=== PATIENT | male | born 1950 | race Caucasian/White ===

== ENCOUNTER 2019-09-22 14:17 | Emergency (ER) | payer MEDICARE ==
[2019-09-22] MEDS ORDERED: Lidocaine 2% Jelly 30 ML Tube MUCMEM ONE (14:21)
[2019-09-22] MEDS ORDERED: Lidocaine 2% HCl 6 ML JEL.PF.APP MM ONE (14:30)
--- NOTE | 2019-09-22 14:56 | EDM.PDOC ---
ED HPI GENERAL MEDICAL PROBLEM - General Chief Complaint: Genitourinary Problem Stated Complaint: CATETHER REPLACE Time Seen by Provider: 09/22/19 14:25 Source of Information: Reports: Patient History Limitations: Reports: No Limitations - History of Present Illness INITIAL COMMENTS - FREE TEXT/NARRATIVE: Patient presented to the ED because of replacement of vivar catheter. His catheter apparently was licking on the side and urine flow was obstructed. He denies any dysuria,fever,chills or flank pain. - Related Data Allergies Allergy/AdvReac Type Severity Reaction Status Date / Time No Known Allergies Allergy Verified 09/22/19 14:20 Home Meds: Home Meds Sulfamethoxazole/Trimethoprim [Bactrim Ds Tablet] 1 each PO BID #14 tablet 09/22 [Rx] Past Medical History Cardiovascular History: Reports: Hypertension, PVD Genitourinary History: Reports: Prostate Disorder, Renal Disease Musculoskeletal History: Reports: RA Endocrine/Metabolic History: Reports: Diabetes, Type II - Infectious Disease History Infectious Disease History: Reports: Chicken Pox, Measles, Mumps - Past Surgical History Head Surgeries/Procedures: Reports: None Musculoskeletal Surgical History: Reports: Arthroscopic Knee Other Musculoskeletal Surgeries/Procedures:: R knee scope Social & Family History - Family History Family Medical History: Noncontributory - Tobacco Use Smoking Status *Q: Never Smoker - Caffeine Use Caffeine Use: Reports: None - Recreational Drug Use Recreational Drug Use: No ED ROS GENERAL - Review of Systems Review Of Systems: See Below Constitutional: Reports: No Symptoms HEENT: Reports: No Symptoms Respiratory: Reports: No Symptoms Cardiovascular: Reports: No Symptoms Endocrine: Reports: No Symptoms GI/Abdominal: Reports: No Symptoms : Reports: Other (stinky urine) Musculoskeletal: Reports: No Symptoms Skin: Reports: No Symptoms Neurological: Reports: No Symptoms Psychiatric: Reports: No Symptoms ED EXAM, RENAL/ - Physical Exam Exam: See Below Exam Limited By: No Limitations General Appearance: Alert, No Apparent Distress Ears: Normal External Exam, Normal Canal, Hearing Grossly Normal, Normal TMs Nose: Normal Inspection, Normal Mucosa, No Blood Throat/Mouth: Normal Inspection, Normal Lips, Normal Teeth, Normal Gums, Normal Oropharynx, Normal Voice Head: Atraumatic, Normocephalic Neck: Normal Inspection, Supple, Non-Tender, Full Range of Motion Respiratory/Chest: No Respiratory Distress, Lungs Clear, Normal Breath Sounds, No Accessory Muscle Use, Chest Non-Tender Cardiovascular: Normal Peripheral Pulses, Regular Rate, Rhythm, No Edema, No Gallop, No JVD, No Murmur, No Rub GI/Abdominal: Normal Bowel Sounds, Soft, Non-Tender, No Organomegaly, No Distention, No Abnormal Bruit (Male) Exam: Other (catheter in place with turbid urine color that is malodorous) Back Exam: Normal Inspection, Full Range of Motion Extremities: Normal Inspection, Normal Range of Motion Course - Vital Signs Text/Narrative:: replacement of vivar UA-see result start on Bactrim DS, 1 tab po BID x 7 days pending UC result. Last Recorded V/S: Last Vital Signs Temp 36.6 C 09/22/19 14:17 Pulse 83 09/22/19 14:17 Resp 18 09/22/19 14:17 BP 122/73 09/22/19 14:17 Pulse Ox 99 09/22/19 14:17 - Orders/Labs/Meds Orders: Active Orders 24 hr Category Date Time Status CULTURE URINE [RM] Stat Lab 09/22/19 15:57 Ordered Labs: Laboratory Tests 09/22/19 Range/Units 15:20 Urine Color Brown (YELLOW) Urine Appearance Cloudy (CLEAR) Urine pH 5.0 (5.0-6.5) Ur Specific [place] 1.020 (1.010-1.025) Urine Protein 500 H (NEGATIVE) mg/dL Urine Glucose (UA) Normal (NORMAL) mg/dL Urine Ketones Negative (NEGATIVE) mg/dL Urine Occult Blood Large H (NEGATIVE) Urine Nitrite Positive H (NEGATIVE) Urine Bilirubin Negative (NEGATIVE) Urine Urobilinogen Normal (NEGATIVE) mg/dL Ur Leukocyte Esterase Large H (NEGATIVE) Urine RBC Packed H (0-5) Urine WBC Packed H (0-5) Urine Bacteria Many H (NS) Meds: Medications Discontinued Medications Generic Name Dose Route Start Last Admin Trade Name Freq PRN Reason Stop Dose Admin Lidocaine HCl 6 ml 09/22/19 14:21 Xylocaine 2% Jelly MUCMEM 09/22/19 14:22 ONETIME ONE Departure - Departure Time of Disposition: 15:15 Disposition: Home, Self-Care 01 Condition: Good Clinical Impression: Indwelling catheter replaced - Discharge Information Prescriptions: Sulfamethoxazole/Trimethoprim [Bactrim Ds Tablet] 1 each PO BID #14 tablet Instructions: Indwelling Urinary Catheter Insertion, Care After Referrals: Abdias Rivera MD [Primary Care Provider] - Forms: ED Department Discharge Additional Instructions: please read discharge instructions on catheter replacement increase oral fluids follow up as needed Sepsis Event Note - Evaluation Sepsis Screening Result: No Definite Risk - Focused Exam Vital Signs: Vital Signs Temp Pulse Resp BP Pulse Ox 09/22/19 14:17 36.6 C 83 18 122/73 99 Date Exam was Performed: 09/22/19 Time Exam was Performed: 16:17 - My Orders Last 24 Hours: My Active Orders 09/22/19 15:57 CULTURE URINE [RM] Stat - Assessment/Plan Last 24 Hours: My Active Orders 09/22/19 15:57 CULTURE URINE [RM] Stat
== END 2019-09-22 15:34 | disposition home or self-care (01) ==
LOC: FB.ED 14:17
DX: Z46.6 Encounter for fitting and adjustment of urinary device (principal); E11.9 Type 2 diabetes mellitus without complications; I10 Essential (primary) hypertension; Z79.899 Other long term (current) drug therapy
CPT/HCPCS: 51702; 81001; 87086; 87088; 87186; 99282; 99283-25; A9270-GY

== ENCOUNTER 2020-01-01 13:56 | Inpatient (IN) | payer MEDICARE, OTHER ==
[2020-01-01] MEDS ORDERED: cefTRIAXone 1 GM in Sodium Chloride 0.9% 50 ML IV ONE (15:34)
[2020-01-01] MEDS ORDERED: Lidocaine 2% HCl 6 ML JEL.PF.APP ONE ×2 (15:35→15:36)
[2020-01-01] MEDS ORDERED: Sodium Chloride 0.9% 1,000 ML IV SCH (15:45)
--- NOTE | 2020-01-01 16:31 | EDM.PDOC ---
ED HPI GENERAL MEDICAL PROBLEM - General Chief Complaint: Fever Stated Complaint: CONFUSION,POSS UTI,FEVER Time Seen by Provider: 01/01/20 14:45 Source of Information: Reports: Patient History Limitations: Reports: Altered Mental Status - History of Present Illness INITIAL COMMENTS - FREE TEXT/NARRATIVE: c/o fever pt has indwelling vivar, it was changed at [facility] today but there there was little urine output, he was noted to have a fever and sent to the ED on arrival at the ED the vivar was found to be coiled in the urethra, the balloon was partially deflated but could not be extracted by RN, with gentle traction the catheter came out with ~2 ml of saline still in one side of the balloon (not cleared why it had drained completely as the plunger on the syringe was pulled back), there was a gush of urine that was brown with old blood, no fresh blood there was 263 ml urine on bladder scan prior to placing of new catheter and approximately this amount was drained with new catheter - Related Data Allergies Allergy/AdvReac Type Severity Reaction Status Date / Time No Known Allergies Allergy Verified 01/01/20 14:22 Home Meds: Home Meds Aspirin 81 mg PO DAILY 01/01/20 [History] Finasteride 5 mg PO DAILY 01/01/20 [History] Insulin Glarg,Human.Rec.Analog [Lantus Solostar] 34 units SUBCUT DAILY 01/01/20 [History] Losartan Potassium 100 mg PO DAILY 01/01/20 [History] Magnesium Chloride [Mag Delay] 64 mg PO BEDTIME 01/01/20 [History] Tamsulosin HCl 0.4 mg PO DAILY 01/01/20 [History] Thiamine [Vitamin B-1] 100 mg PO DAILY 01/01/20 [History] Vit B Cmplx 3/Fa/Vit C/Biotin [Teodora-Daniel Rx Tablet] 1 tab PO DAILY 01/01/20 [ History] carvediloL [Carvedilol] 6.25 mg PO BID 01/01/20 [History] metFORMIN HCl [Metformin HCl] 500 mg PO BID 01/01/20 [History] Past Medical History Cardiovascular History: Reports: Hypertension, PVD Genitourinary History: Reports: Prostate Disorder, Renal Disease Musculoskeletal History: Reports: RA Endocrine/Metabolic History: Reports: Diabetes, Type II - Infectious Disease History Infectious Disease History: Reports: Chicken Pox, Measles, Mumps - Past Surgical History Head Surgeries/Procedures: Reports: None Musculoskeletal Surgical History: Reports: Arthroscopic Knee Other Musculoskeletal Surgeries/Procedures:: R knee scope Social & Family History - Family History Family Medical History: Noncontributory - Caffeine Use Caffeine Use: Reports: None ED ROS GENERAL - Review of Systems Review Of Systems: See Below Constitutional: Reports: Fever HEENT: Reports: No Symptoms Respiratory: Reports: No Symptoms Cardiovascular: Reports: No Symptoms Endocrine: Reports: No Symptoms GI/Abdominal: Reports: No Symptoms : Reports: Other (pelvic/bladder pain, uretheral pain) Musculoskeletal: Reports: No Symptoms Skin: Reports: No Symptoms Neurological: Reports: No Symptoms Psychiatric: Reports: No Symptoms Hematologic/Lymphatic: Reports: No Symptoms Immunologic: Reports: No Symptoms ED EXAM, GENERAL - Physical Exam Exam: See Below Exam Limited By: No Limitations General Appearance: Alert, Anxious, Mild Distress, Other (pacing in room, much more relaxed and calm after vivar changed, nontoxic) Head: Atraumatic, Normocephalic Neck: Normal Inspection, Supple, Non-Tender Respiratory/Chest: Lungs Clear, Normal Breath Sounds, Crackles Cardiovascular: Regular Rate, Rhythm, No Edema, Other (2/6 ISAAC at LSB) GI/Abdominal: Soft, Non-Tender, No Distention (Male) Exam: Other (circumscised male, normal anatomy) Back Exam: Normal Inspection, Full Range of Motion. No: CVA Tenderness (R), CVA Tenderness (L) Extremities: Normal Inspection, Normal Range of Motion, Non-Tender, No Pedal Edema Neurological: Alert, Oriented, CN II-XII Intact, No Motor/Sensory Deficits, Slow to Respond Psychiatric: Anxious Skin Exam: Warm, Dry, Intact, Normal Color, No Rash Lymphatic: No Adenopathy Course - Vital Signs Last Recorded V/S: Last Vital Signs Temp 38.5 C H 01/01/20 15:10 Pulse 121 H 01/01/20 15:10 Resp 18 01/01/20 15:10 BP 167/72 H 01/01/20 15:10 Pulse Ox 95 01/01/20 15:10 - Orders/Labs/Meds Orders: Active Orders 24 hr Category Date Time Status EKG Documentation Completion [RC] ASDIRECTED Care 01/01/20 14:09 Active Chest 1V Frontal [CR] Stat Exams 01/01/20 14:04 Taken CULTURE BLOOD [BC] Urgent Lab 01/01/20 14:30 Received CULTURE BLOOD [BC] Urgent Lab 01/01/20 14:40 Received CULTURE URINE [RM] Stat Lab 01/01/20 16:22 Ordered Sodium Chloride 0.9% [Normal Saline] 1,000 ml Med 01/01/20 15:45 Active IV ASDIRECTED Blood Culture x2 Reflex Set [OM.PC] Urgent Oth 01/01/20 14:04 Ordered EKG 12 Lead [EK] Routine Ther 01/01/20 14:08 Ordered Medication Orders Sodium Chloride (Normal Saline) 1,000 mls @ 0 mls/hr IV ASDIRECTED MIKE Stop: 01/05/20 15:34 Last Admin: 01/01/20 16:17 Dose: 30 mls/hr Labs: Laboratory Tests 01/01/20 01/01/20 01/01/20 Range/Units 14:30 14:30 14:30 WBC 21.2 H (4.5-12.0) X10-3/uL RBC 4.99 (4.30-5.75) x10(6)uL Hgb 16.1 (13.5-17.8) g/dL Hct 47.1 (30.0-51.3) % MCV 94.3 (80-96) fL MCH 32.2 (27.7-33.6) pg MCHC 34.2 (32.2-35.4) g/dL RDW 12.7 (11.5-15.5) % Plt Count 141 (125-369) X10(3)uL MPV 8.4 (7.4-10.4) fL Add Manual Diff Yes Neutrophils % (Manual) 83 H (46-82) % Band Neutrophils % 6 (0-6) % Lymphocytes % (Manual) 1 L (13-37) % Monocytes % (Manual) 10 (4-12) % Sodium 137 (135-145) mmol/L Potassium 4.0 (3.5-5.3) mmol/L Chloride 100 (100-110) mmol/L Carbon Dioxide 14 L (21-32) mmol/L BUN 26 H D (7-18) mg/dL Creatinine 2.6 H* (0.70-1.30) mg/dL Est Cr Clr Drug Dosing TNP Estimated GFR (MDRD) 24 L (>60) BUN/Creatinine Ratio 10.0 (9-20) Glucose 404 H* D (80-116) mg/dL Lactic Acid 8.3 H* (0.4-2.0) mmol/L Calcium 9.4 (8.6-10.2) mg/dL Total Bilirubin 1.8 H (0.1-1.3) mg/dL AST 51 H D (5-25) IU/L ALT 94 H D (12-36) U/L Alkaline Phosphatase 83 (56-112) IU/L Troponin I (4.0-60.3) pg/mL Total Protein 8.3 H (6.0-8.0) g/dL Albumin 3.4 (3.2-4.6) g/dL Globulin 4.9 g/dL Albumin/Globulin Ratio 0.7 Urine Color (YELLOW) Urine Appearance (CLEAR) Urine pH (5.0-6.5) Ur Specific [place] (1.010-1.025) Urine Protein (NEGATIVE) mg/dL Urine Glucose (UA) (NORMAL) mg/dL Urine Ketones (NEGATIVE) mg/dL Urine Occult Blood (NEGATIVE) Urine Nitrite (NEGATIVE) Urine Bilirubin (NEGATIVE) Urine Urobilinogen (NEGATIVE) mg/dL Ur Leukocyte Esterase (NEGATIVE) Urine RBC (0-5) Urine WBC (0-5) 01/01/20 01/01/20 Range/Units 14:30 15:52 WBC (4.5-12.0) X10-3/uL RBC (4.30-5.75) x10(6)uL Hgb (13.5-17.8) g/dL Hct (30.0-51.3) % MCV (80-96) fL MCH (27.7-33.6) pg MCHC (32.2-35.4) g/dL RDW (11.5-15.5) % Plt Count (125-369) X10(3)uL MPV (7.4-10.4) fL Add Manual Diff Neutrophils % (Manual) (46-82) % Band Neutrophils % (0-6) % Lymphocytes % (Manual) (13-37) % Monocytes % (Manual) (4-12) % Sodium (135-145) mmol/L Potassium (3.5-5.3) mmol/L Chloride (100-110) mmol/L Carbon Dioxide (21-32) mmol/L BUN (7-18) mg/dL Creatinine (0.70-1.30) mg/dL Est Cr Clr Drug Dosing Estimated GFR (MDRD) (>60) BUN/Creatinine Ratio (9-20) Glucose (80-116) mg/dL Lactic Acid (0.4-2.0) mmol/L Calcium (8.6-10.2) mg/dL Total Bilirubin (0.1-1.3) mg/dL AST (5-25) IU/L ALT (12-36) U/L Alkaline Phosphatase (56-112) IU/L Troponin I 272.0 H* (4.0-60.3) pg/mL Total Protein (6.0-8.0) g/dL Albumin (3.2-4.6) g/dL Globulin g/dL Albumin/Globulin Ratio Urine Color Red (YELLOW) Urine Appearance Cloudy (CLEAR) Urine pH 6.5 (5.0-6.5) Ur Specific [place] 1.020 (1.010-1.025) Urine Protein 100 H (NEGATIVE) mg/dL Urine Glucose (UA) 50 H (NORMAL) mg/dL Urine Ketones 15 H (NEGATIVE) mg/dL Urine Occult Blood Large H (NEGATIVE) Urine Nitrite Negative (NEGATIVE) Urine Bilirubin Negative (NEGATIVE) Urine Urobilinogen 1 H (NEGATIVE) mg/dL Ur Leukocyte Esterase Large H (NEGATIVE) Urine RBC Packed H (0-5) Urine WBC Packed H (0-5) Meds: Medications Generic Name Dose Route Start Last Admin Trade Name Freq PRN Reason Stop Dose Admin Sodium Chloride 1,000 mls @ 0 mls/hr 01/01/20 15:45 01/01/20 16:17 Normal Saline IV 01/05/20 15:34 30 mls/hr ASDIRECTED MIKE Administration KVO Discontinued Medications Generic Name Dose Route Start Last Admin Trade Name Freq PRN Reason Stop Dose Admin Ceftriaxone Sodium 1 gm/ 50 mls @ 200 mls/hr 01/01/20 15:34 01/01/20 16:01 Sodium Chloride IV 01/01/20 15:48 200 mls/hr ONETIME ONE Administration Lidocaine HCl Confirm 05/01/20 15:35 Glydo Administered 01/01/20 15:36 Dose 6 ml .ROUTE .STK-MED ONE Lidocaine HCl 0 ml 01/01/20 15:36 Glydo .XX 01/01/20 15:37 NOW ONE - Re-Assessments/Exams Free Text/Narrative Re-Assessment/Exam: 01/01/20 16:37 last UC 09-22-19 with E coli sensitive to all inc'd trop of uncertain clinical sig, no cp, no sob, CxR 1v is neg on prelim ED reading. EKG with ST 118 with old IWMI. Will check serial trops. [facility] reports that pt does not leave vivar alone, he has detached it in the past, it has been found coiled "in his butt". Pt goes to [place] monthly to change vivar. Wearing depends. 01/01/20 16:45 order for initial one liter NS incorrectly came across as KVO, changed to NS x 2 liters, each at 999 ml/hr, will recheck lactic after 2nd liter moderate dementia, apparently wants to be a full code Departure - Departure Time of Disposition: 16:35 Disposition: Admitted As Inpatient 64 Condition: Good Clinical Impression: Sepsis, Urinary tract infection associated with catheterization of urinary tract, Tachycardia, Leukocytosis, Left shift, Elevated troponin, Acute on chronic renal insufficiency, Urinary obstruction, Dementia - Discharge Information *PRESCRIPTION DRUG MONITORING PROGRAM REVIEWED*: Yes *COPY OF PRESCRIPTION DRUG MONITORING REPORT IN PATIENT KIRAN: Not Applicable Referrals: Abdias Rivera MD [Primary Care Provider] - Sepsis Event Note - Evaluation Sepsis Screening Result: Possible Sepsis Risk - Focused Exam Vital Signs: Vital Signs Temp Pulse Resp BP Pulse Ox 01/01/20 15:10 38.5 C H 121 H 18 167/72 H 95 01/01/20 13:56 123 H 24 H 188/102 H 90 L Date Exam was Performed: 01/01/20 Time Exam was Performed: 16:25 - My Orders Last 24 Hours: My Active Orders 01/01/20 14:04 Chest 1V Frontal [CR] Stat Blood Culture x2 Reflex Set [OM.PC] Urgent 01/01/20 14:08 EKG 12 Lead [EK] Routine 01/01/20 14:09 EKG Documentation Completion [RC] ASDIRECTED 01/01/20 14:30 CULTURE BLOOD [BC] Urgent 01/01/20 14:40 CULTURE BLOOD [BC] Urgent 01/01/20 15:45 Sodium Chloride 0.9% [Normal Saline] 1,000 ml IV ASDIRECTED 01/01/20 16:22 CULTURE URINE [RM] Stat - Assessment/Plan Last 24 Hours: My Active Orders 01/01/20 14:04 Chest 1V Frontal [CR] Stat Blood Culture x2 Reflex Set [OM.PC] Urgent 01/01/20 14:08 EKG 12 Lead [EK] Routine 01/01/20 14:09 EKG Documentation Completion [RC] ASDIRECTED 01/01/20 14:30 CULTURE BLOOD [BC] Urgent 01/01/20 14:40 CULTURE BLOOD [BC] Urgent 01/01/20 15:45 Sodium Chloride 0.9% [Normal Saline] 1,000 ml IV ASDIRECTED 01/01/20 16:22 CULTURE URINE [RM] Stat
[2020-01-01] MEDS ORDERED: Sodium Chloride 0.9% 1,000 ML IV ONE ×2 (16:43→16:44)
--- NOTE | 2020-01-01 17:06 | CR ---
INDICATION: Fever. CHEST, ONE VIEW: An AP portable upright view of the chest 01/01/20 was obtained - no comparisons. The heart appears to be near the upper limits of normal in size but is emphasized by poor inspiration and AP positioning. The aorta is calcified minimally in the arch area and mildly tortuous. A consolidating pneumonia or effusion was not identified. IMPRESSION: No acute process. MTDD
[2020-01-01] MEDS ORDERED: Ondansetron 4 MG/2 ML SDV IV PRN (17:56)
[2020-01-01] MEDS ORDERED: Acetaminophen 325 MG Tab PO PRN (17:56)
[2020-01-01] MEDS ORDERED: Dextrose 5%-0.45% NaCl 1,000 ML IV SCH (18:00)
[2020-01-01] MEDS: Sodium Chloride 0.45% 1,000 ML IV SCH (18:54)
[2020-01-01] MEDS: Carvedilol 6.25 MG Tab PO SCH (19:01)
[2020-01-01] MEDS: metFORMIN 500 MG Tab PO SCH (19:01)
[2020-01-01] MEDS: Enoxaparin 30 MG/0.3 ML Syringe SUBCUT SCH (19:02)
[2020-01-01] MEDS: Magnesium Chloride 64 MG Tab.ER PO SCH (20:10)
[2020-01-02] MEDS: Sodium Chloride 0.45% 1,000 ML IV SCH (08:11)
[2020-01-02] MEDS: metFORMIN 500 MG Tab PO SCH ×2 (08:29→17:13)
[2020-01-02] MEDS: Carvedilol 6.25 MG Tab PO SCH ×2 (08:29→17:12)
[2020-01-02] MEDS: Tamsulosin 0.4 MG Cap.ER PO SCH (08:29)
[2020-01-02] MEDS: Thiamine 100 MG Tab PO SCH (08:29)
[2020-01-02] MEDS: Aspirin 81 MG Tab.Chew PO SCH (08:29)
[2020-01-02] MEDS: Insulin Lispro 100 Unit/ML 3 ML KwikPen SUBCUT SCH ×3 (08:31→17:45)
[2020-01-02] MEDS: Insulin Glargine,Human Rec. Analog 100 Units/ML 3 ML Pen SUBCUT SCH (08:33)
[2020-01-02] MEDS: Finasteride 5 MG Tab PO SCH (08:40)
--- NOTE | 2020-01-02 08:40 | PCM.HP.2 ---
H&P History of Present Illness - General Date of Service: 01/02/20 Admit Problem/Dx: Admission Diagnosis/Problem Admission Diagnosis/Problem Sepsis Source of Information: Patient, Old Records History Limitations: Reports: Altered Mental Status - History of Present Illness Initial Comments - Free Text/Narative: Scott is a 69-year-old male from [facility]. He came yesterday with acute confusion, and fever. Was found to have urinary retention, and a presumptive diagnosis of sepsis was made based on his urinalysis, lactate and presence of fever. He did not endorse any respiratory symptoms. Is known to have BPH, dementia, peripheral vascular disease, hypertension type 2 diabetes previously stable. The symptoms were fairly acute in onset. - Related Data Allergies/Adverse Reactions: Allergies Allergy/AdvReac Type Severity Reaction Status Date / Time No Known Allergies Allergy Verified 01/01/20 14:22 Home Medications: Home Meds Aspirin 81 mg PO DAILY 01/01/20 [History] Finasteride 5 mg PO DAILY 01/01/20 [History] Insulin Glarg,Human.Rec.Analog [Lantus Solostar] 34 units SUBCUT DAILY 01/01/20 [History] Losartan Potassium 100 mg PO DAILY 01/01/20 [History] Magnesium Chloride [Mag Delay] 64 mg PO BEDTIME 01/01/20 [History] Tamsulosin HCl 0.4 mg PO DAILY 01/01/20 [History] Thiamine [Vitamin B-1] 100 mg PO DAILY 01/01/20 [History] Vit B Cmplx 3/Fa/Vit C/Biotin [Teodora-[facility] Rx Tablet] 1 tab PO DAILY 01/01/20 [ History] carvediloL [Carvedilol] 6.25 mg PO BID 01/01/20 [History] metFORMIN HCl [Metformin HCl] 500 mg PO BID 01/01/20 [History] Past Medical History HEENT History: Reports: Hard of Hearing Cardiovascular History: Reports: Hypertension, PVD Genitourinary History: Reports: Prostate Disorder, Renal Disease Musculoskeletal History: Reports: RA Psychiatric History: Reports: Dementia Endocrine/Metabolic History: Reports: Diabetes, Type II - Infectious Disease History Infectious Disease History: Reports: Chicken Pox, Measles, Mumps - Past Surgical History Head Surgeries/Procedures: Reports: None Musculoskeletal Surgical History: Reports: Arthroscopic Knee Other Musculoskeletal Surgeries/Procedures:: R knee scope Social & Family History - Family History Family Medical History: Noncontributory - Tobacco Use Smoking Status *Q: Never Smoker - Caffeine Use Caffeine Use: Reports: None - Recreational Drug Use Recreational Drug Use: No H&P Review of Systems - Review of Systems: Review Of Systems: Comprehensive ROS is negative, except as noted in HPI. Exam - Exam Exam: See Below - Vital Signs Vital Signs: Last Vital Signs Temp 98.6 F 01/02/20 03:37 Pulse 96 01/02/20 08:29 Resp 18 01/02/20 03:37 BP 127/66 01/02/20 08:29 Pulse Ox 95 01/02/20 03:37 Weight: 79.742 kg - Exam General: Alert, Oriented, 4 HEENT: PERRLA, Hearing Intact, Mucosa Moist & [place], Nares Patent, Normal Nasal Septum, Posterior Pharynx Clear, Conjunctiva Clear, EOMI, EACs Clear, TMs Clear Neck: Supple, Trachea Midline, 2 Lungs: Clear to Auscultation, Normal Respiratory Effort Cardiovascular: Regular Rate, Regular Rhythm GI/Abdominal Exam: Normal Bowel Sounds, Soft, Non-Tender, No Organomegaly, No Distention, No Abnormal Bruit, No Mass, Pelvis Stable (Male) Exam: Deferred Rectal (Males) Exam: Deferred Back Exam: Normal Inspection, Full Range of Motion, NT Extremities: Normal Inspection, Normal Range of Motion, Non-Tender, No Pedal Edema, Normal Capillary Refill Skin: Warm, Dry, Intact Neurological: Cranial Nerves Intact, Reflexes Equal Bilateral Neuro Extensive - Mental Status: Alert, Oriented x3, Normal Mood/Affect, Normal Cognition Neuro Extensive - Motor, Sensory, Reflexes: CN II-XII Intact, Normal Gait, Normal Reflexes Psychiatric: Alert, Normal Affect, Normal Mood - Patient Data Lab Results Last 24 hrs: Laboratory Results - last 24 hr 01/01/20 01/01/20 01/01/20 Range/Units 14:30 14:30 14:30 WBC 21.2 H (4.5-12.0) X10-3/uL RBC 4.99 (4.30-5.75) x10(6)uL Hgb 16.1 (13.5-17.8) g/dL Hct 47.1 (30.0-51.3) % MCV 94.3 (80-96) fL MCH 32.2 (27.7-33.6) pg MCHC 34.2 (32.2-35.4) g/dL RDW 12.7 (11.5-15.5) % Plt Count 141 (125-369) X10(3)uL MPV 8.4 (7.4-10.4) fL Add Manual Diff Yes Neutrophils % (Manual) 83 H (46-82) % Band Neutrophils % 6 (0-6) % Lymphocytes % (Manual) 1 L (13-37) % Monocytes % (Manual) 10 (4-12) % Sodium 137 (135-145) mmol/L Potassium 4.0 (3.5-5.3) mmol/L Chloride 100 (100-110) mmol/L Carbon Dioxide 14 L (21-32) mmol/L BUN 26 H D (7-18) mg/dL Creatinine 2.6 H* (0.70-1.30) mg/dL Est Cr Clr Drug Dosing TNP Estimated GFR (MDRD) 24 L (>60) BUN/Creatinine Ratio 10.0 (9-20) Glucose 404 H* D (80-116) mg/dL POC Glucose (80-116) mg/dL Lactic Acid 8.3 H* (0.4-2.0) mmol/L Calcium 9.4 (8.6-10.2) mg/dL Magnesium (1.8-2.5) mg/dL Total Bilirubin 1.8 H (0.1-1.3) mg/dL AST 51 H D (5-25) IU/L ALT 94 H D (12-36) U/L Alkaline Phosphatase 83 (56-112) IU/L Troponin I (4.0-60.3) pg/mL Total Protein 8.3 H (6.0-8.0) g/dL Albumin 3.4 (3.2-4.6) g/dL Globulin 4.9 g/dL Albumin/Globulin Ratio 0.7 Urine Color (YELLOW) Urine Appearance (CLEAR) Urine pH (5.0-6.5) Ur Specific [place] (1.010-1.025) Urine Protein (NEGATIVE) mg/dL Urine Glucose (UA) (NORMAL) mg/dL Urine Ketones (NEGATIVE) mg/dL Urine Occult Blood (NEGATIVE) Urine Nitrite (NEGATIVE) Urine Bilirubin (NEGATIVE) Urine Urobilinogen (NEGATIVE) mg/dL Ur Leukocyte Esterase (NEGATIVE) Urine RBC (0-5) Urine WBC (0-5) Ur Squamous Epith Cells (NS,R,O) Urine Bacteria (NS) 01/01/20 01/01/20 01/01/20 Range/Units 14:30 15:52 20:00 WBC (4.5-12.0) X10-3/uL RBC (4.30-5.75) x10(6)uL Hgb (13.5-17.8) g/dL Hct (30.0-51.3) % MCV (80-96) fL MCH (27.7-33.6) pg MCHC (32.2-35.4) g/dL RDW (11.5-15.5) % Plt Count (125-369) X10(3)uL MPV (7.4-10.4) fL Add Manual Diff Neutrophils % (Manual) (46-82) % Band Neutrophils % (0-6) % Lymphocytes % (Manual) (13-37) % Monocytes % (Manual) (4-12) % Sodium (135-145) mmol/L Potassium (3.5-5.3) mmol/L Chloride (100-110) mmol/L Carbon Dioxide (21-32) mmol/L BUN (7-18) mg/dL Creatinine (0.70-1.30) mg/dL Est Cr Clr Drug Dosing Estimated GFR (MDRD) (>60) BUN/Creatinine Ratio (9-20) Glucose (80-116) mg/dL POC Glucose (80-116) mg/dL Lactic Acid 4.4 H* (0.4-2.0) mmol/L Calcium (8.6-10.2) mg/dL Magnesium (1.8-2.5) mg/dL Total Bilirubin (0.1-1.3) mg/dL AST (5-25) IU/L ALT (12-36) U/L Alkaline Phosphatase (56-112) IU/L Troponin I 272.0 H* (4.0-60.3) pg/mL Total Protein (6.0-8.0) g/dL Albumin (3.2-4.6) g/dL Globulin g/dL Albumin/Globulin Ratio Urine Color Red (YELLOW) Urine Appearance Cloudy (CLEAR) Urine pH 6.5 (5.0-6.5) Ur Specific [place] 1.020 (1.010-1.025) Urine Protein 100 H (NEGATIVE) mg/dL Urine Glucose (UA) 50 H (NORMAL) mg/dL Urine Ketones 15 H (NEGATIVE) mg/dL Urine Occult Blood Large H (NEGATIVE) Urine Nitrite Negative (NEGATIVE) Urine Bilirubin Negative (NEGATIVE) Urine Urobilinogen 1 H (NEGATIVE) mg/dL Ur Leukocyte Esterase Large H (NEGATIVE) Urine RBC Packed H (0-5) Urine WBC Packed H (0-5) Ur Squamous Epith Cells (NS,R,O) Urine Bacteria (NS) 01/01/20 01/01/20 01/02/20 Range/Units 21:09 23:05 03:30 WBC (4.5-12.0) X10-3/uL RBC (4.30-5.75) x10(6)uL Hgb (13.5-17.8) g/dL Hct (30.0-51.3) % MCV (80-96) fL MCH (27.7-33.6) pg MCHC (32.2-35.4) g/dL RDW (11.5-15.5) % Plt Count (125-369) X10(3)uL MPV (7.4-10.4) fL Add Manual Diff Neutrophils % (Manual) (46-82) % Band Neutrophils % (0-6) % Lymphocytes % (Manual) (13-37) % Monocytes % (Manual) (4-12) % Sodium (135-145) mmol/L Potassium (3.5-5.3) mmol/L Chloride (100-110) mmol/L Carbon Dioxide (21-32) mmol/L BUN (7-18) mg/dL Creatinine (0.70-1.30) mg/dL Est Cr Clr Drug Dosing Estimated GFR (MDRD) (>60) BUN/Creatinine Ratio (9-20) Glucose (80-116) mg/dL POC Glucose 286 H (80-116) mg/dL Lactic Acid 3.4 H* (0.4-2.0) mmol/L Calcium (8.6-10.2) mg/dL Magnesium (1.8-2.5) mg/dL Total Bilirubin (0.1-1.3) mg/dL AST (5-25) IU/L ALT (12-36) U/L Alkaline Phosphatase (56-112) IU/L Troponin I (4.0-60.3) pg/mL Total Protein (6.0-8.0) g/dL Albumin (3.2-4.6) g/dL Globulin g/dL Albumin/Globulin Ratio Urine Color Brown (YELLOW) Urine Appearance Cloudy (CLEAR) Urine pH 5.0 (5.0-6.5) Ur Specific [place] 1.020 (1.010-1.025) Urine Protein 30 H (NEGATIVE) mg/dL Urine Glucose (UA) 100 H (NORMAL) mg/dL Urine Ketones 15 H (NEGATIVE) mg/dL Urine Occult Blood Large H (NEGATIVE) Urine Nitrite Positive H (NEGATIVE) Urine Bilirubin Negative (NEGATIVE) Urine Urobilinogen 1 H (NEGATIVE) mg/dL Ur Leukocyte Esterase Large H (NEGATIVE) Urine RBC >100 H (0-5) Urine WBC >100 H (0-5) Ur Squamous Epith Cells Few H (NS,R,O) Urine Bacteria Moderate H (NS) 01/02/20 01/02/20 01/02/20 Range/Units 06:15 06:15 06:15 WBC 13.3 H (4.5-12.0) X10-3/uL RBC 3.97 L (4.30-5.75) x10(6)uL Hgb 13.0 L D (13.5-17.8) g/dL Hct 37.3 (30.0-51.3) % MCV 94.0 (80-96) fL MCH 32.7 (27.7-33.6) pg MCHC 34.8 (32.2-35.4) g/dL RDW 12.6 (11.5-15.5) % Plt Count 114 L (125-369) X10(3)uL MPV 8.6 (7.4-10.4) fL Add Manual Diff Yes Neutrophils % (Manual) 78 (46-82) % Band Neutrophils % 6 (0-6) % Lymphocytes % (Manual) 10 L (13-37) % Monocytes % (Manual) 6 (4-12) % Sodium 141 (135-145) mmol/L Potassium 3.2 L (3.5-5.3) mmol/L Chloride 106 D (100-110) mmol/L Carbon Dioxide 23 (21-32) mmol/L BUN 23 H (7-18) mg/dL Creatinine 1.3 (0.70-1.30) mg/dL Est Cr Clr Drug Dosing TNP Estimated GFR (MDRD) 54 L (>60) BUN/Creatinine Ratio 17.7 (9-20) Glucose 173 H D (80-116) mg/dL POC Glucose (80-116) mg/dL Lactic Acid (0.4-2.0) mmol/L Calcium 7.9 L (8.6-10.2) mg/dL Magnesium 1.8 (1.8-2.5) mg/dL Total Bilirubin (0.1-1.3) mg/dL AST (5-25) IU/L ALT (12-36) U/L Alkaline Phosphatase (56-112) IU/L Troponin I (4.0-60.3) pg/mL Total Protein (6.0-8.0) g/dL Albumin (3.2-4.6) g/dL Globulin g/dL Albumin/Globulin Ratio Urine Color (YELLOW) Urine Appearance (CLEAR) Urine pH (5.0-6.5) Ur Specific [place] (1.010-1.025) Urine Protein (NEGATIVE) mg/dL Urine Glucose (UA) (NORMAL) mg/dL Urine Ketones (NEGATIVE) mg/dL Urine Occult Blood (NEGATIVE) Urine Nitrite (NEGATIVE) Urine Bilirubin (NEGATIVE) Urine Urobilinogen (NEGATIVE) mg/dL Ur Leukocyte Esterase (NEGATIVE) Urine RBC (0-5) Urine WBC (0-5) Ur Squamous Epith Cells (NS,R,O) Urine Bacteria (NS) 01/02/20 Range/Units 06:15 WBC (4.5-12.0) X10-3/uL RBC (4.30-5.75) x10(6)uL Hgb (13.5-17.8) g/dL Hct (30.0-51.3) % MCV (80-96) fL MCH (27.7-33.6) pg MCHC (32.2-35.4) g/dL RDW (11.5-15.5) % Plt Count (125-369) X10(3)uL MPV (7.4-10.4) fL Add Manual Diff Neutrophils % (Manual) (46-82) % Band Neutrophils % (0-6) % Lymphocytes % (Manual) (13-37) % Monocytes % (Manual) (4-12) % Sodium (135-145) mmol/L Potassium (3.5-5.3) mmol/L Chloride (100-110) mmol/L Carbon Dioxide (21-32) mmol/L BUN (7-18) mg/dL Creatinine (0.70-1.30) mg/dL Est Cr Clr Drug Dosing Estimated GFR (MDRD) (>60) BUN/Creatinine Ratio (9-20) Glucose (80-116) mg/dL POC Glucose (80-116) mg/dL Lactic Acid (0.4-2.0) mmol/L Calcium (8.6-10.2) mg/dL Magnesium (1.8-2.5) mg/dL Total Bilirubin (0.1-1.3) mg/dL AST (5-25) IU/L ALT (12-36) U/L Alkaline Phosphatase (56-112) IU/L Troponin I 139.6 H* (4.0-60.3) pg/mL Total Protein (6.0-8.0) g/dL Albumin (3.2-4.6) g/dL Globulin g/dL Albumin/Globulin Ratio Urine Color (YELLOW) Urine Appearance (CLEAR) Urine pH (5.0-6.5) Ur Specific [place] (1.010-1.025) Urine Protein (NEGATIVE) mg/dL Urine Glucose (UA) (NORMAL) mg/dL Urine Ketones (NEGATIVE) mg/dL Urine Occult Blood (NEGATIVE) Urine Nitrite (NEGATIVE) Urine Bilirubin (NEGATIVE) Urine Urobilinogen (NEGATIVE) mg/dL Ur Leukocyte Esterase (NEGATIVE) Urine RBC (0-5) Urine WBC (0-5) Ur Squamous Epith Cells (NS,R,O) Urine Bacteria (NS) Result Diagrams: 01/02/20 06:15 01/02/20 06:15 Young Results Last 24 hrs: Microbiology 01/01/20 14:40 Aerobic Blood Culture - Preliminary Blood - Venous - Lab Draw Anaerobic Blood Culture - Preliminary 01/01/20 14:30 Aerobic Blood Culture - Preliminary Blood - Venous Anaerobic Blood Culture - Preliminary EKG INTERPRETATION EKG Date: 01/01/20 Rhythm: NSR Sepsis Event Note - Evaluation Sepsis Screening Result: No Definite Risk Current Stage of Sepsis: Sepsis - Focused Exam Sepsis Event Note Statement: Focused Sepsis Exam Completed Vital Signs: Vital Signs Temp Pulse Pulse Resp BP BP Pulse Ox 01/02/20 08:29 96 127/66 01/02/20 03:37 98.6 F 84 18 112/56 L 95 01/02/20 00:00 98.2 F 82 18 114/56 L 96 Date Exam was Performed: 01/02/20 Time Exam was Performed: 08:35 - Problem List (1) Sepsis SNOMED Code(s): 01565968 ICD Code: A41.9 - SEPSIS, UNSPECIFIED ORGANISM Status: Acute Current Visit: Yes Qualifiers: Sepsis acute organ dysfunction status: with acute organ dysfunction (2) Acute on chronic renal insufficiency SNOMED Code(s): 134182092 ICD Code: N28.9 - DISORDER OF KIDNEY AND URETER, UNSPECIFIED; N18.9 - CHRONIC KIDNEY DISEASE, UNSPECIFIED Status: Acute Current Visit: Yes (3) Dementia SNOMED Code(s): 33261865 ICD Code: F03.90 - UNSPECIFIED DEMENTIA WITHOUT BEHAVIORAL DISTURBANCE Status: Acute Current Visit: Yes Qualifiers: Dementia type: Alzheimer's disease (4) Elevated troponin SNOMED Code(s): 130819590, 898514387, 176253143 ICD Code: R79.89 - OTHER SPECIFIED ABNORMAL FINDINGS OF BLOOD CHEMISTRY Status: Acute Current Visit: Yes (5) Urinary obstruction SNOMED Code(s): 4228457 ICD Code: N13.9 - OBSTRUCTIVE AND REFLUX UROPATHY, UNSPECIFIED Status: Acute Current Visit: Yes (6) Urinary tract infection associated with catheterization of urinary tract SNOMED Code(s): 645859545 ICD Code: T83.511A - I/I REACT D/T INDWELLING URETHRAL CATHETER, INIT; N39.0 - URINARY TRACT INFECTION, SITE NOT SPECIFIED Status: Acute Current Visit: Yes Problem List Initiated/Reviewed/Updated: Yes Orders Last 24hrs: Active Orders 24 hr Category Date Time Status Admission Diagnosis [ADT] Routine ADT 01/01/20 16:33 Ordered Admission Status [Patient Status] [ADT] Routine ADT 01/01/20 17:50 Active Bladder Scan [] ASDIRECTED Care 01/01/20 16:53 Active Blood Glucose Check, Bedside [RC] QIDACANDBED Care 01/01/20 17:56 Active Cardiac Monitoring [RC] 08,16,00 Care 01/01/20 17:57 Active EKG Documentation Completion [RC] ASDIRECTED Care 01/01/20 14:09 Active EKG Documentation Completion [RC] ASDIRECTED Care 01/02/20 06:00 Active Tillman Catheter Insertion [Insert Urinary Catheter] [OM. Care 01/01/20 16:30 Ordered PC] Q24H Intake and Output [RC] 06,14,22 Care 01/01/20 17:57 Active Oxygen Therapy [RC] PRN Care 01/01/20 17:56 Active Up With Assistance [RC] ASDIRECTED Care 01/01/20 17:56 Active Urinary Catheter Assessment [RC] QSHIFT Care 01/01/20 17:15 Active VTE/DVT Education [RC] Per Unit Routine Care 01/01/20 17:56 Active Vital Signs [RC] 08,12,16,20,00,04 Care 01/01/20 17:56 Active Consistent Carbohydrate Diet [DIET] Diet 01/02/20 Breakfast Active Heart Healthy Diet [DIET] Diet 01/02/20 Breakfast Active BASIC METABOLIC PANEL,BMP [CHEM] DAILY Lab 01/03/20 06:00 Ordered BASIC METABOLIC PANEL,BMP [CHEM] DAILY Lab 01/04/20 06:00 Ordered BASIC METABOLIC PANEL,BMP [CHEM] DAILY Lab 01/05/20 06:00 Ordered BASIC METABOLIC PANEL,BMP [CHEM] DAILY Lab 01/06/20 06:00 Ordered CBC WITH AUTO DIFF [HEME] DAILY Lab 01/03/20 06:00 Ordered CBC WITH AUTO DIFF [HEME] DAILY Lab 01/04/20 06:00 Ordered CBC WITH AUTO DIFF [HEME] DAILY Lab 01/05/20 06:00 Ordered CBC WITH AUTO DIFF [HEME] DAILY Lab 01/06/20 06:00 Ordered CORONAVIRUS COVID-19 PCR PHL Stat Lab 01/02/20 08:33 Ordered CULTURE BLOOD [BC] Urgent Lab 01/01/20 14:30 Results CULTURE BLOOD [BC] Urgent Lab 01/01/20 14:40 Results CULTURE URINE [RM] Stat Lab 01/01/20 15:52 Received TROPONIN I [CHEM] DAILY Lab 01/03/20 06:00 Ordered TROPONIN I [CHEM] DAILY Lab 01/04/20 06:00 Ordered Acetaminophen [Tylenol] Med 01/01/20 17:56 Active 650 mg PO Q4H PRN Aspirin Med 01/02/20 09:00 Active 81 mg PO DAILY Enoxaparin [Lovenox] Med 01/01/20 18:00 Active 30 mg SUBCUT Q24H Finasteride [Proscar] Med 01/02/20 09:00 Active 5 mg PO DAILY Insulin Glarg,Human.Rec.Analog [LantUS Solostar] Med 01/02/20 09:00 Active 34 units SUBCUT DAILY Insulin Lispro [HumaLOG] Med 01/02/20 08:00 Active See Protocol SUBCUT TIDMEALS Magnesium Chloride [Mag-64] Med 01/01/20 21:00 Active 64 mg PO BEDTIME Ondansetron [Zofran] Med 01/01/20 17:56 Active 4 mg IV Q4H PRN Tamsulosin [Flomax] Med 01/02/20 09:00 Active 0.4 mg PO DAILY Thiamine [Vitamin B-1] Med 01/02/20 09:00 Active 100 mg PO DAILY carvediloL [Coreg] Med 01/01/20 18:30 Active 6.25 mg PO BIDMEALS cefTRIAXone [Rocephin] Med 01/02/20 08:45 Ordered 1 gm IVPUSH Q24H metFORMIN [Glucophage] Med 01/01/20 18:30 Active 500 mg PO BIDMEALS Blood Culture x2 Reflex Set [OM.PC] Urgent Oth 01/01/20 14:04 Ordered Resuscitation Status Routine Resus Stat 01/01/20 17:56 Ordered EKG 12 Lead [EK] DAILY Ther 01/02/20 06:00 Ordered EKG 12 Lead [EK] DAILY Ther 01/03/20 06:00 Ordered EKG 12 Lead [EK] DAILY Ther 01/04/20 06:00 Ordered EKG 12 Lead [EK] Routine Ther 01/01/20 14:08 Ordered Medication Orders Acetaminophen (Tylenol) 650 mg PO Q4H PRN PRN Reason: Pain (Mild 1-3)/fever Aspirin (Aspirin) 81 mg PO DAILY [facility] Last Admin: 01/02/20 08:29 Dose: 81 mg Carvedilol (Coreg) 6.25 mg PO BIDMEALS [facility] Last Admin: 01/02/20 08:29 Dose: 6.25 mg Admin: 01/01/20 19:01 Dose: 6.25 mg Ceftriaxone Sodium (Rocephin) 1 gm IVPUSH Q24H [facility] Enoxaparin Sodium (Lovenox) 30 mg SUBCUT Q24H [facility] Last Admin: 01/01/20 19:02 Dose: 30 mg Finasteride (Proscar) 5 mg PO DAILY [facility] Insulin Glargine (Lantus Solostar) 34 units SUBCUT DAILY [facility] Insulin Human Lispro (Humalog) 0 unit SUBCUT TIDMEALS [facility]; Protocol Magnesium Chloride (Mag-64) 64 mg PO BEDTIME [facility] Last Admin: 01/01/20 20:10 Dose: 64 mg Metformin HCl (Glucophage) 500 mg PO BIDMEALS [facility] Last Admin: 01/02/20 08:29 Dose: 500 mg Admin: 01/01/20 19:01 Dose: 500 mg Ondansetron HCl (Zofran) 4 mg IV Q4H PRN PRN Reason: Nausea/Vomiting Tamsulosin HCl (Flomax) 0.4 mg PO DAILY [facility] Last Admin: 01/02/20 08:29 Dose: 0.4 mg Thiamine HCl (Vitamin B-1) 100 mg PO DAILY [facility] Last Admin: 01/02/20 08:29 Dose: 100 mg Assessment/Plan Comment:: I'm told the blood cultures is growing gram negative rods. Will start IV Rocephin. Repeat labs and enzymes. DC fluids
[2020-01-02] MEDS ORDERED: Losartan 100 MG Tab PO SCH (09:00)
[2020-01-02] MEDS: cefTRIAXone 1 GM Vial IVPUSH SCH (09:07)
[2020-01-02] MEDS: Enoxaparin 30 MG/0.3 ML Syringe SUBCUT SCH (17:12)
[2020-01-02] MEDS: Magnesium Chloride 64 MG Tab.ER PO SCH (20:11)
[2020-01-03] MEDS: Finasteride 5 MG Tab PO SCH (08:02)
[2020-01-03] MEDS: metFORMIN 500 MG Tab PO SCH ×2 (08:03→17:47)
[2020-01-03] MEDS: Aspirin 81 MG Tab.Chew PO SCH (08:03)
[2020-01-03] MEDS: Thiamine 100 MG Tab PO SCH (08:03)
[2020-01-03] MEDS: Carvedilol 6.25 MG Tab PO SCH ×2 (08:03→17:47)
[2020-01-03] MEDS: Tamsulosin 0.4 MG Cap.ER PO SCH (08:03)
[2020-01-03] MEDS: cefTRIAXone 1 GM Vial IVPUSH SCH (08:08)
[2020-01-03] MEDS: Insulin Lispro 100 Unit/ML 3 ML KwikPen SUBCUT SCH ×3 (08:12→17:44)
[2020-01-03] MEDS: Insulin Glargine,Human Rec. Analog 100 Units/ML 3 ML Pen SUBCUT SCH (08:12)
--- NOTE | 2020-01-03 09:45 | PCM.PN ---
- General Info Date of Service: 01/03/20 Subjective Update: HAs improved,no fever. Functional Status: Reports: Pain Controlled - Review of Systems General: Reports: No Symptoms Pulmonary: Reports: No Symptoms - Patient Data Vitals - Most Recent: Last Vital Signs Temp 98.3 F 01/03/20 07:34 Pulse 75 01/03/20 08:03 Resp 16 01/03/20 07:34 BP 172/92 H 01/03/20 08:03 Pulse Ox 97 01/03/20 07:34 Weight - Most Recent: 80.966 kg I&O - Last 24 Hours: Intake & Output 01/02/20 01/03/20 01/03/20 22:59 06:59 14:59 Intake Total 680 200 Output Total 600 600 Balance 80 -400 Lab Results Last 24 Hours: Laboratory Results - last 24 hr 01/02/20 01/02/20 01/02/20 Range/Units 11:13 17:11 20:14 WBC (4.5-12.0) X10-3/uL RBC (4.30-5.75) x10(6)uL Hgb (13.5-17.8) g/dL Hct (30.0-51.3) % MCV (80-96) fL MCH (27.7-33.6) pg MCHC (32.2-35.4) g/dL RDW (11.5-15.5) % Plt Count (125-369) X10(3)uL MPV (7.4-10.4) fL Add Manual Diff Neutrophils % (Manual) (46-82) % Band Neutrophils % (0-6) % Lymphocytes % (Manual) (13-37) % Monocytes % (Manual) (4-12) % Sodium (135-145) mmol/L Potassium (3.5-5.3) mmol/L Chloride (100-110) mmol/L Carbon Dioxide (21-32) mmol/L BUN (7-18) mg/dL Creatinine (0.70-1.30) mg/dL Est Cr Clr Drug Dosing Estimated GFR (MDRD) (>60) BUN/Creatinine Ratio (9-20) Glucose (80-116) mg/dL POC Glucose 211 H 209 H 235 H (80-116) mg/dL Calcium (8.6-10.2) mg/dL Troponin I (4.0-60.3) pg/mL 01/03/20 01/03/20 01/03/20 Range/Units 05:31 06:18 06:18 WBC 10.1 (4.5-12.0) X10-3/uL RBC 3.96 L (4.30-5.75) x10(6)uL Hgb 13.0 L (13.5-17.8) g/dL Hct 37.4 (30.0-51.3) % MCV 94.3 (80-96) fL MCH 32.7 (27.7-33.6) pg MCHC 34.7 (32.2-35.4) g/dL RDW 12.5 (11.5-15.5) % Plt Count 121 L (125-369) X10(3)uL MPV 8.9 (7.4-10.4) fL Add Manual Diff Yes Neutrophils % (Manual) 76 (46-82) % Band Neutrophils % 4 (0-6) % Lymphocytes % (Manual) 9 L (13-37) % Monocytes % (Manual) 11 (4-12) % Sodium 138 (135-145) mmol/L Potassium 3.2 L (3.5-5.3) mmol/L Chloride 103 (100-110) mmol/L Carbon Dioxide 25 (21-32) mmol/L BUN 16 (7-18) mg/dL Creatinine 1.1 (0.70-1.30) mg/dL Est Cr Clr Drug Dosing TNP Estimated GFR (MDRD) > 60 (>60) BUN/Creatinine Ratio 14.5 (9-20) Glucose 154 H (80-116) mg/dL POC Glucose 146 H D (80-116) mg/dL Calcium 7.9 L (8.6-10.2) mg/dL Troponin I (4.0-60.3) pg/mL 01/03/20 Range/Units 06:18 WBC (4.5-12.0) X10-3/uL RBC (4.30-5.75) x10(6)uL Hgb (13.5-17.8) g/dL Hct (30.0-51.3) % MCV (80-96) fL MCH (27.7-33.6) pg MCHC (32.2-35.4) g/dL RDW (11.5-15.5) % Plt Count (125-369) X10(3)uL MPV (7.4-10.4) fL Add Manual Diff Neutrophils % (Manual) (46-82) % Band Neutrophils % (0-6) % Lymphocytes % (Manual) (13-37) % Monocytes % (Manual) (4-12) % Sodium (135-145) mmol/L Potassium (3.5-5.3) mmol/L Chloride (100-110) mmol/L Carbon Dioxide (21-32) mmol/L BUN (7-18) mg/dL Creatinine (0.70-1.30) mg/dL Est Cr Clr Drug Dosing Estimated GFR (MDRD) (>60) BUN/Creatinine Ratio (9-20) Glucose (80-116) mg/dL POC Glucose (80-116) mg/dL Calcium (8.6-10.2) mg/dL Troponin I 40.6 (4.0-60.3) pg/mL Young Results Last 24 Hours: Microbiology 01/01/20 14:30 Aerobic Blood Culture - Preliminary Blood - Venous Gram Negative Rods Anaerobic Blood Culture - Preliminary Gram Negative Rods 01/01/20 14:40 Aerobic Blood Culture - Preliminary Blood - Venous - Lab Draw Gram Negative Rods Anaerobic Blood Culture - Preliminary Gram Negative Rods 01/01/20 15:52 Urine Culture - Preliminary Urine, Catheterized Gram Negative Rods Med Orders - Current: Current Medications Acetaminophen (Tylenol) 650 mg PO Q4H PRN PRN Reason: Pain (Mild 1-3)/fever Aspirin (Aspirin) 81 mg PO DAILY [facility] Last Admin: 01/03/20 08:03 Dose: 81 mg Carvedilol (Coreg) 6.25 mg PO BIDMEALS [facility] Last Admin: 01/03/20 08:03 Dose: 6.25 mg Ceftriaxone Sodium (Rocephin) 1 gm IVPUSH Q24H [facility] Last Admin: 01/03/20 08:08 Dose: 1 gm Enoxaparin Sodium (Lovenox) 30 mg SUBCUT Q24H [facility] Last Admin: 01/02/20 17:12 Dose: 30 mg Finasteride (Proscar) 5 mg PO DAILY [facility] Last Admin: 01/03/20 08:02 Dose: 5 mg Insulin Glargine (Lantus Solostar) 34 units SUBCUT DAILY [facility] Last Admin: 01/03/20 08:12 Dose: 34 units Insulin Human Lispro (Humalog) 0 unit SUBCUT TIDMEALS [facility]; Protocol Last Admin: 01/03/20 08:12 Dose: 1 units Magnesium Chloride (Mag-64) 64 mg PO BEDTIME [facility] Last Admin: 01/02/20 20:11 Dose: 64 mg Metformin HCl (Glucophage) 500 mg PO BIDMEALS [facility] Last Admin: 01/03/20 08:03 Dose: 500 mg Ondansetron HCl (Zofran) 4 mg IV Q4H PRN PRN Reason: Nausea/Vomiting Tamsulosin HCl (Flomax) 0.4 mg PO DAILY [facility] Last Admin: 01/03/20 08:03 Dose: 0.4 mg Thiamine HCl (Vitamin B-1) 100 mg PO DAILY [facility] Last Admin: 01/03/20 08:03 Dose: 100 mg Discontinued Medications Ceftriaxone Sodium 1 gm/ (Sodium Chloride) 50 mls @ 200 mls/hr IV ONETIME ONE Stop: 01/01/20 15:48 Last Admin: 01/01/20 16:01 Dose: 200 mls/hr Sodium Chloride (Normal Saline) 1,000 mls @ 0 mls/hr IV ASDIRECTED [facility] Stop: 01/05/20 15:34 Last Infusion: 01/01/20 16:45 Dose: 999 mls/hr Sodium Chloride (Normal Saline) 1,000 mls @ 999 mls/hr IV .BOLUS ONE Stop: 01/01/20 17:43 Last Admin: 01/01/20 18:50 Dose: Not Given Sodium Chloride (Normal Saline) 1,000 mls @ 999 mls/hr IV .BOLUS ONE Stop: 01/01/20 17:44 Last Admin: 01/01/20 17:45 Dose: 999 mls/hr Sodium Chloride (Sodium Chloride 0.45%) 1,000 mls @ 75 mls/hr IV ASDIRECTED [facility] Last Admin: 01/02/20 08:11 Dose: 75 mls/hr Lidocaine HCl (Glydo) Confirm Administered Dose 6 ml .ROUTE .STK-MED ONE Stop: 01/01/20 15:36 Last Admin: 01/01/20 16:31 Dose: Not Given Lidocaine HCl (Glydo) 0 ml .XX NOW ONE Stop: 01/01/20 15:37 Last Admin: 01/01/20 17:13 Dose: 6 ml Losartan Potassium (Cozaar) 100 mg PO DAILY [facility] - Exam General: Alert HEENT: Pupils Equal Neck: Supple Lungs: Clear to Auscultation Cardiovascular: Regular Rate Sepsis Event Note - Evaluation Sepsis Screening Result: No Definite Risk - Focused Exam Vital Signs: Vital Signs Temp Pulse Pulse Resp BP BP Pulse Ox 01/03/20 08:03 75 172/92 H 01/03/20 07:34 98.3 F 75 16 172/92 H 97 01/03/20 04:00 98.4 F 81 18 128/72 92 L 01/03/20 00:00 98.4 F 74 18 154/56 H 94 L Date Exam was Performed: 01/03/20 Time Exam was Performed: 09:44 - Problem List & Annotations (1) Sepsis SNOMED Code(s): 87989990 Code(s): A41.9 - SEPSIS, UNSPECIFIED ORGANISM Status: Acute Current Visit : Yes Qualifiers: Sepsis acute organ dysfunction status: with acute organ dysfunction (2) Acute on chronic renal insufficiency SNOMED Code(s): 781434524 Code(s): N28.9 - DISORDER OF KIDNEY AND URETER, UNSPECIFIED; N18.9 - CHRONIC KIDNEY DISEASE, UNSPECIFIED Status: Acute Current Visit: Yes (3) Dementia SNOMED Code(s): 23338824 Code(s): F03.90 - UNSPECIFIED DEMENTIA WITHOUT BEHAVIORAL DISTURBANCE Status: Acute Current Visit: Yes Qualifiers: Dementia type: Alzheimer's disease (4) Elevated troponin SNOMED Code(s): 317515760, 417106736, 262197020 Code(s): R79.89 - OTHER SPECIFIED ABNORMAL FINDINGS OF BLOOD CHEMISTRY Status: Acute Current Visit: Yes (5) Urinary obstruction SNOMED Code(s): 7494291 Code(s): N13.9 - OBSTRUCTIVE AND REFLUX UROPATHY, UNSPECIFIED Status: Acute Current Visit: Yes (6) Urinary tract infection associated with catheterization of urinary tract SNOMED Code(s): 126077910 Code(s): T83.511A - I/I REACT D/T INDWELLING URETHRAL CATHETER, INIT; N39.0 - URINARY TRACT INFECTION, SITE NOT SPECIFIED Status: Acute Current Visit: Yes - Problem List Review Problem List Initiated/Reviewed/Updated: Yes - My Orders Last 24 Hours: My Active Orders 01/02/20 09:00 cefTRIAXone [Rocephin] 1 gm IVPUSH Q24H 01/02/20 09:25 CORONAVIRUS COVID-19 PCR PHL Stat - Plan Plan:: I'm told the blood cultures is growing gram negative rods. Continue IV Rocephin.Possible discharge tomorrow
[2020-01-03] MEDS: Enoxaparin 30 MG/0.3 ML Syringe SUBCUT SCH (17:47)
[2020-01-03] MEDS: Magnesium Chloride 64 MG Tab.ER PO SCH (21:34)
[2020-01-04] MEDS: Carvedilol 6.25 MG Tab PO SCH ×2 (09:05→18:08)
[2020-01-04] MEDS: metFORMIN 500 MG Tab PO SCH ×2 (09:05→18:08)
[2020-01-04] MEDS: Aspirin 81 MG Tab.Chew PO SCH (09:06)
[2020-01-04] MEDS: Insulin Glargine,Human Rec. Analog 100 Units/ML 3 ML Pen SUBCUT SCH (09:07)
[2020-01-04] MEDS: Tamsulosin 0.4 MG Cap.ER PO SCH (09:07)
[2020-01-04] MEDS: Thiamine 100 MG Tab PO SCH (09:07)
[2020-01-04] MEDS: Finasteride 5 MG Tab PO SCH (09:07)
[2020-01-04] MEDS: Insulin Lispro 100 Unit/ML 3 ML KwikPen SUBCUT SCH ×3 (09:09→18:06)
[2020-01-04] MEDS: cefTRIAXone 1 GM Vial IVPUSH SCH (09:12)
--- NOTE | 2020-01-04 09:25 | PCM.PN ---
- General Info Date of Service: 01/04/20 Subjective Update: HAs improved,no fever. Functional Status: Reports: Pain Controlled - Review of Systems General: Reports: No Symptoms HEENT: Reports: No Symptoms Pulmonary: Reports: No Symptoms Cardiovascular: Reports: No Symptoms - Patient Data Vitals - Most Recent: Last Vital Signs Temp 98.4 F 01/04/20 04:00 Pulse 70 01/04/20 09:05 Resp 18 01/04/20 04:00 BP 133/88 01/04/20 09:05 Pulse Ox 95 01/04/20 04:00 Weight - Most Recent: 80.966 kg I&O - Last 24 Hours: Intake & Output 01/03/20 01/04/20 01/04/20 22:59 06:59 14:59 Intake Total 400 300 Output Total 450 550 Balance -50 -250 Lab Results Last 24 Hours: Laboratory Results - last 24 hr 01/03/20 01/03/20 01/03/20 Range/Units 12:07 17:42 20:33 WBC (4.5-12.0) X10-3/uL RBC (4.30-5.75) x10(6)uL Hgb (13.5-17.8) g/dL Hct (30.0-51.3) % MCV (80-96) fL MCH (27.7-33.6) pg MCHC (32.2-35.4) g/dL RDW (11.5-15.5) % Plt Count (125-369) X10(3)uL MPV (7.4-10.4) fL Neut % (Auto) (46-82) % Lymph % (Auto) (13-37) % Graves % (Auto) (4-12) % Eos % (Auto) (1.0-5.0) % Baso % (Auto) (0-2) % Neut # (Auto) (1.6-8.3) # Lymph # (Auto) (0.6-5.0) # Graves # (Auto) (0.0-1.3) # Eos # (Auto) (0.0-0.8) # Baso # (Auto) (0.0-0.2) # Sodium (135-145) mmol/L Potassium (3.5-5.3) mmol/L Chloride (100-110) mmol/L Carbon Dioxide (21-32) mmol/L BUN (7-18) mg/dL Creatinine (0.70-1.30) mg/dL Est Cr Clr Drug Dosing Estimated GFR (MDRD) (>60) BUN/Creatinine Ratio (9-20) Glucose (80-116) mg/dL POC Glucose 166 H 217 H 184 H (80-116) mg/dL Calcium (8.6-10.2) mg/dL Troponin I (4.0-60.3) pg/mL 01/04/20 01/04/20 01/04/20 Range/Units 06:45 06:45 06:45 WBC 8.4 (4.5-12.0) X10-3/uL RBC 4.16 L (4.30-5.75) x10(6)uL Hgb 13.3 L (13.5-17.8) g/dL Hct 38.9 (30.0-51.3) % MCV 93.6 (80-96) fL MCH 32.0 (27.7-33.6) pg MCHC 34.2 (32.2-35.4) g/dL RDW 12.8 (11.5-15.5) % Plt Count 134 (125-369) X10(3)uL MPV 8.3 (7.4-10.4) fL Neut % (Auto) 76.2 (46-82) % Lymph % (Auto) 13.4 (13-37) % Graves % (Auto) 9.3 (4-12) % Eos % (Auto) 1 (1.0-5.0) % Baso % (Auto) 1 (0-2) % Neut # (Auto) 6.4 (1.6-8.3) # Lymph # (Auto) 1.1 (0.6-5.0) # Graves # (Auto) 0.8 (0.0-1.3) # Eos # (Auto) 0.0 (0.0-0.8) # Baso # (Auto) 0.1 (0.0-0.2) # Sodium 139 (135-145) mmol/L Potassium 3.4 L (3.5-5.3) mmol/L Chloride 103 (100-110) mmol/L Carbon Dioxide 25 (21-32) mmol/L BUN 15 (7-18) mg/dL Creatinine 1.0 (0.70-1.30) mg/dL Est Cr Clr Drug Dosing TNP Estimated GFR (MDRD) > 60 (>60) BUN/Creatinine Ratio 15.0 (9-20) Glucose 177 H (80-116) mg/dL POC Glucose (80-116) mg/dL Calcium 8.2 L (8.6-10.2) mg/dL Troponin I 19.1 (4.0-60.3) pg/mL Young Results Last 24 Hours: Microbiology 01/01/20 14:40 Aerobic Blood Culture - Final Blood - Venous - Lab Draw Escherichia Coli Anaerobic Blood Culture - Final Escherichia Coli 01/01/20 14:30 Aerobic Blood Culture - Final Blood - Venous Escherichia Coli Anaerobic Blood Culture - Final Escherichia Coli. 01/01/20 15:52 Urine Culture - Final Urine, Catheterized Escherichia Coli Med Orders - Current: Current Medications Acetaminophen (Tylenol) 650 mg PO Q4H PRN PRN Reason: Pain (Mild 1-3)/fever Aspirin (Aspirin) 81 mg PO DAILY [facility] Last Admin: 01/04/20 09:06 Dose: 81 mg Carvedilol (Coreg) 6.25 mg PO BIDMEALS [facility] Last Admin: 01/04/20 09:05 Dose: 6.25 mg Ceftriaxone Sodium (Rocephin) 1 gm IVPUSH Q24H [facility] Last Admin: 01/04/20 09:12 Dose: Not Given Enoxaparin Sodium (Lovenox) 30 mg SUBCUT Q24H [facility] Last Admin: 01/03/20 17:47 Dose: 30 mg Finasteride (Proscar) 5 mg PO DAILY [facility] Last Admin: 01/04/20 09:07 Dose: 5 mg Insulin Glargine (Lantus Solostar) 34 units SUBCUT DAILY [facility] Last Admin: 01/04/20 09:07 Dose: 34 units Insulin Human Lispro (Humalog) 0 unit SUBCUT TIDMEALS [facility]; Protocol Last Admin: 01/04/20 09:09 Dose: 1 unit Magnesium Chloride (Mag-64) 64 mg PO BEDTIME [facility] Last Admin: 01/03/20 21:34 Dose: 64 mg Metformin HCl (Glucophage) 500 mg PO BIDMEALS [facility] Last Admin: 01/04/20 09:05 Dose: 500 mg Ondansetron HCl (Zofran) 4 mg IV Q4H PRN PRN Reason: Nausea/Vomiting Tamsulosin HCl (Flomax) 0.4 mg PO DAILY [facility] Last Admin: 01/04/20 09:07 Dose: 0.4 mg Thiamine HCl (Vitamin B-1) 100 mg PO DAILY [facility] Last Admin: 01/04/20 09:07 Dose: 100 mg Discontinued Medications Ceftriaxone Sodium 1 gm/ (Sodium Chloride) 50 mls @ 200 mls/hr IV ONETIME ONE Stop: 01/01/20 15:48 Last Admin: 01/01/20 16:01 Dose: 200 mls/hr Sodium Chloride (Normal Saline) 1,000 mls @ 0 mls/hr IV ASDIRECTED [facility] Stop: 01/05/20 15:34 Last Infusion: 01/01/20 16:45 Dose: 999 mls/hr Sodium Chloride (Normal Saline) 1,000 mls @ 999 mls/hr IV .BOLUS ONE Stop: 01/01/20 17:43 Last Admin: 01/01/20 18:50 Dose: Not Given Sodium Chloride (Normal Saline) 1,000 mls @ 999 mls/hr IV .BOLUS ONE Stop: 01/01/20 17:44 Last Admin: 01/01/20 17:45 Dose: 999 mls/hr Sodium Chloride (Sodium Chloride 0.45%) 1,000 mls @ 75 mls/hr IV ASDIRECTED [facility] Last Admin: 01/02/20 08:11 Dose: 75 mls/hr Lidocaine HCl (Glydo) Confirm Administered Dose 6 ml .ROUTE .STK-MED ONE Stop: 01/01/20 15:36 Last Admin: 01/01/20 16:31 Dose: Not Given Lidocaine HCl (Glydo) 0 ml .XX NOW ONE Stop: 01/01/20 15:37 Last Admin: 01/01/20 17:13 Dose: 6 ml Losartan Potassium (Cozaar) 100 mg PO DAILY [facility] - Exam General: Alert HEENT: Pupils Equal, Pupils Reactive, EOMI, Mucous Membr. Moist/[place] Lungs: Clear to Auscultation, Normal Respiratory Effort Cardiovascular: Regular Rate, Regular Rhythm GI/Abdominal Exam: Normal Bowel Sounds, Soft, Non-Tender, No Organomegaly, No Distention, No Abnormal Bruit, No Mass, Pelvis Stable Sepsis Event Note - Evaluation Sepsis Screening Result: No Definite Risk - Focused Exam Vital Signs: Vital Signs Temp Pulse Pulse Resp BP BP Pulse Ox 01/04/20 09:05 70 133/88 01/04/20 04:00 98.4 F 68 18 146/72 H 95 01/04/20 00:00 98.4 F 62 20 162/75 H 97 Date Exam was Performed: 01/04/20 Time Exam was Performed: 09:24 - Problem List & Annotations (1) Sepsis SNOMED Code(s): 24054944 Code(s): A41.9 - SEPSIS, UNSPECIFIED ORGANISM Status: Acute Current Visit : Yes Qualifiers: Sepsis acute organ dysfunction status: with acute organ dysfunction (2) Acute on chronic renal insufficiency SNOMED Code(s): 811235024 Code(s): N28.9 - DISORDER OF KIDNEY AND URETER, UNSPECIFIED; N18.9 - CHRONIC KIDNEY DISEASE, UNSPECIFIED Status: Acute Current Visit: Yes (3) Dementia SNOMED Code(s): 65727019 Code(s): F03.90 - UNSPECIFIED DEMENTIA WITHOUT BEHAVIORAL DISTURBANCE Status: Acute Current Visit: Yes Qualifiers: Dementia type: Alzheimer's disease (4) Elevated troponin SNOMED Code(s): 963233488, 398070528, 997677406 Code(s): R79.89 - OTHER SPECIFIED ABNORMAL FINDINGS OF BLOOD CHEMISTRY Status: Acute Current Visit: Yes (5) Urinary obstruction SNOMED Code(s): 5392815 Code(s): N13.9 - OBSTRUCTIVE AND REFLUX UROPATHY, UNSPECIFIED Status: Acute Current Visit: Yes (6) Urinary tract infection associated with catheterization of urinary tract SNOMED Code(s): 735152964 Code(s): T83.511A - I/I REACT D/T INDWELLING URETHRAL CATHETER, INIT; N39.0 - URINARY TRACT INFECTION, SITE NOT SPECIFIED Status: Acute Current Visit: Yes - Problem List Review Problem List Initiated/Reviewed/Updated: Yes - My Orders Last 24 Hours: My Active Orders 01/04/20 08:57 Ready for Discharge [RC] PER UNIT ROUTINE 01/04/20 09:30 cephALEXin [Keflex] 500 mg PO Q6HR - Plan Plan:: Change to Oral Keflex.May DC today of COVID test comes back.
[2020-01-04] MEDS: Cephalexin 500 MG Cap PO SCH ×3 (10:05→20:41)
--- NOTE | 2020-01-04 11:45 | DISCH ---
DISCHARGE DATE: 01/05/2020 REASON FOR ADMISSION: 1. Alteration in mental status. 2. Sepsis. 3. Urinary tract infection. 4. Urinary retention. 5. Alzheimer's dementia, early-onset. BRIEF HISTORY: This is a 69-year-old male from the [facility], who was brought in with delirium, aggression, agitation, and was found to have urinary retention. He also had a fever and low blood pressure initially. Urine revealed infection, after he was catheterized for urinary retention. He improved on Rocephin. His urine grew E coli, more than 100,000, and his blood cultures grew E coli, which was sensitive to Rocephin, which he was being given here. He had an episode where his catheter came out,replaced with some difficultly. Improved enough to go home today, back to the [facility]. I discharged him on cephalexin orally for 5 days. Follow up with Dr. Rivera in a week. The rest of his home medications were continued. I spent more than 35 minutes in his discharge. CRUZ
[2020-01-04] MEDS: Enoxaparin 30 MG/0.3 ML Syringe SUBCUT SCH (18:09)
[2020-01-04] MEDS: Magnesium Chloride 64 MG Tab.ER PO SCH (20:23)
[2020-01-04] MEDS ORDERED: QUEtiapine 25 MG Tab PO SCH (21:00)
[2020-01-05] MEDS: Cephalexin 500 MG Cap PO SCH ×2 (03:21→08:39)
[2020-01-05] MEDS: Carvedilol 6.25 MG Tab PO SCH (08:38)
[2020-01-05] MEDS: metFORMIN 500 MG Tab PO SCH (08:38)
[2020-01-05] MEDS: Insulin Lispro 100 Unit/ML 3 ML KwikPen SUBCUT SCH (08:38)
[2020-01-05] MEDS: Thiamine 100 MG Tab PO SCH (08:39)
[2020-01-05] MEDS: Tamsulosin 0.4 MG Cap.ER PO SCH (08:39)
[2020-01-05] MEDS: Aspirin 81 MG Tab.Chew PO SCH (08:39)
[2020-01-05] MEDS: Insulin Glargine,Human Rec. Analog 100 Units/ML 3 ML Pen SUBCUT SCH (08:39)
[2020-01-05] MEDS: Finasteride 5 MG Tab PO SCH (08:39)
[2020-01-05] MEDS ORDERED: Lidocaine 2% HCl 6 ML JEL.PF.APP PRN (09:00)
--- NOTE | 2020-01-05 09:20 | PCM.DCSUM1 ---
Discharge Summary - Discharge Data Discharge Date: 01/05/20 Discharge Disposition: Home, W Home Health Agency 06 Condition: Good - Referral to Home Health Date of Face to Face Encounter: 01/05/20 Reason for Homebound Status: Altered mental status.Falls. Primary Care Physician: Abdias Rivera MD Skilled Need: PT Nursing - Discharge Diagnosis/Problem(s) (1) Sepsis SNOMED Code(s): 31841326 ICD Code: A41.9 - SEPSIS, UNSPECIFIED ORGANISM Status: Acute Current Visit: Yes Qualifiers: Sepsis acute organ dysfunction status: with acute organ dysfunction (2) Acute on chronic renal insufficiency SNOMED Code(s): 548902856 ICD Code: N28.9 - DISORDER OF KIDNEY AND URETER, UNSPECIFIED; N18.9 - CHRONIC KIDNEY DISEASE, UNSPECIFIED Status: Acute Current Visit: Yes (3) Dementia SNOMED Code(s): 47267673 ICD Code: F03.90 - UNSPECIFIED DEMENTIA WITHOUT BEHAVIORAL DISTURBANCE Status: Acute Current Visit: Yes Qualifiers: Dementia type: Alzheimer's disease (4) Elevated troponin SNOMED Code(s): 658772091, 126078637, 923887643 ICD Code: R79.89 - OTHER SPECIFIED ABNORMAL FINDINGS OF BLOOD CHEMISTRY Status: Acute Current Visit: Yes (5) Urinary obstruction SNOMED Code(s): 9118971 ICD Code: N13.9 - OBSTRUCTIVE AND REFLUX UROPATHY, UNSPECIFIED Status: Acute Current Visit: Yes (6) Urinary tract infection associated with catheterization of urinary tract SNOMED Code(s): 699387302 ICD Code: T83.511A - I/I REACT D/T INDWELLING URETHRAL CATHETER, INIT; N39.0 - URINARY TRACT INFECTION, SITE NOT SPECIFIED Status: Acute Current Visit: Yes - Discharge Plan *PRESCRIPTION DRUG MONITORING PROGRAM REVIEWED*: Yes *COPY OF PRESCRIPTION DRUG MONITORING REPORT IN PATIENT KIRAN: Not Applicable Prescriptions/Med Rec: cephALEXin [Cephalexin] 500 mg PO TID #15 tablet Home Medications: Home Meds Aspirin 81 mg PO DAILY 01/01/20 [History] Finasteride 5 mg PO DAILY 01/01/20 [History] Insulin Glarg,Human.Rec.Analog [Lantus Solostar] 34 units SUBCUT DAILY 01/01/20 [History] Losartan Potassium 100 mg PO DAILY 01/01/20 [History] Magnesium Chloride [Mag Delay] 64 mg PO BEDTIME 01/01/20 [History] Tamsulosin HCl 0.4 mg PO DAILY 01/01/20 [History] Thiamine [Vitamin B-1] 100 mg PO BEDTIME 01/01/20 [History] carvediloL [Carvedilol] 6.25 mg PO BID 01/01/20 [History] metFORMIN HCl [Metformin HCl] 500 mg PO BID 01/01/20 [History] Acetaminophen [Tylenol] 650 mg PO Q4H PRN 01/04/20 [History] Bisacodyl [Gentle Laxative] 10 mg RECTAL Q72H PRN 01/04/20 [History] Cyanocobalamin (Vitamin B-12) [Vitamin B-12] 1,000 mcg PO DAILY 01/04/20 [ History] Loperamide HCl [Imodium A-D] 2 mg PO ASDIRECTED PRN 01/04/20 [History] Mag Hydrox/Aluminum Hyd/Simeth [Mylanta Maximum Strength Liq] 10 ml PO QID PRN 01/04/20 [History] Magnesium Hydroxide [Milk of Magnesia] 30 ml PO DAILY PRN 01/04/20 [History] Multivitamin 1 tab PO DAILY 01/04/20 [History] Oxybutynin Chloride [Oxybutynin Chloride ER] 10 mg PO DAILY 01/04/20 [History] QUEtiapine [SEROquel] 12.5 mg PO BEDTIME 01/04/20 [History] cephALEXin [Cephalexin] 500 mg PO TID #15 tablet 01/04/20 [Rx] guaiFENesin [Tussin] 10 ml PO Q4H PRN 01/04/20 [History] Forms: ED Department Discharge Referrals: Abdias Rivera MD [Primary Care Provider] - 01/14/20 - Discharge Summary/Plan Comment DC Time >30 min.: Yes - General Info Date of Service: 01/05/20 Subjective Update: HAs improved,no fever.Pulled out [place] accidentally Functional Status: Reports: Pain Controlled - Review of Systems General: Reports: No Symptoms Pulmonary: Reports: No Symptoms Cardiovascular: Reports: No Symptoms Gastrointestinal: Reports: No Symptoms - Patient Data Vitals - Most Recent: Last Vital Signs Temp 97.7 F 01/05/20 04:00 Pulse 52 L 01/05/20 08:38 Resp 16 01/05/20 04:00 BP 154/72 H 01/05/20 08:38 Pulse Ox 97 01/05/20 04:00 Weight - Most Recent: 80.966 kg I&O - Last 24 hours: Intake & Output 01/04/20 01/05/20 01/05/20 22:59 06:59 14:59 Output Total 300 600 Balance -300 -600 Lab Results - Last 24 hrs: Laboratory Results - last 24 hr 01/02/20 01/04/20 01/04/20 Range/Units 09:25 12:03 17:59 WBC (4.5-12.0) X10-3/uL RBC (4.30-5.75) x10(6)uL Hgb (13.5-17.8) g/dL Hct (30.0-51.3) % MCV (80-96) fL MCH (27.7-33.6) pg MCHC (32.2-35.4) g/dL RDW (11.5-15.5) % Plt Count (125-369) X10(3)uL MPV (7.4-10.4) fL Add Manual Diff Neutrophils % (Manual) (46-82) % Band Neutrophils % (0-6) % Lymphocytes % (Manual) (13-37) % Monocytes % (Manual) (4-12) % Eosinophils % (Manual) (0-5) % Basophils % (Manual) (0-2) % Sodium (135-145) mmol/L Potassium (3.5-5.3) mmol/L Chloride (100-110) mmol/L Carbon Dioxide (21-32) mmol/L BUN (7-18) mg/dL Creatinine (0.70-1.30) mg/dL Est Cr Clr Drug Dosing Estimated GFR (MDRD) (>60) BUN/Creatinine Ratio (9-20) Glucose (80-116) mg/dL POC Glucose 219 H 159 H (80-116) mg/dL Calcium (8.6-10.2) mg/dL COVID-19 PCR Negative (NEGATIVE) 01/04/20 01/05/20 01/05/20 Range/Units 20:34 06:30 06:30 WBC 8.8 (4.5-12.0) X10-3/uL RBC 4.04 L (4.30-5.75) x10(6)uL Hgb 12.9 L (13.5-17.8) g/dL Hct 37.7 (30.0-51.3) % MCV 93.3 (80-96) fL MCH 31.9 (27.7-33.6) pg MCHC 34.2 (32.2-35.4) g/dL RDW 12.3 (11.5-15.5) % Plt Count 148 (125-369) X10(3)uL MPV 8.1 (7.4-10.4) fL Add Manual Diff Yes Neutrophils % (Manual) 66 (46-82) % Band Neutrophils % 6 (0-6) % Lymphocytes % (Manual) 18 (13-37) % Monocytes % (Manual) 8 (4-12) % Eosinophils % (Manual) 1 (0-5) % Basophils % (Manual) 1 (0-2) % Sodium 138 (135-145) mmol/L Potassium 3.2 L (3.5-5.3) mmol/L Chloride 104 (100-110) mmol/L Carbon Dioxide 23 (21-32) mmol/L BUN 14 (7-18) mg/dL Creatinine 0.9 (0.70-1.30) mg/dL Est Cr Clr Drug Dosing TNP Estimated GFR (MDRD) > 60 (>60) BUN/Creatinine Ratio 15.6 (9-20) Glucose 147 H (80-116) mg/dL POC Glucose 220 H (80-116) mg/dL Calcium 7.8 L (8.6-10.2) mg/dL COVID-19 PCR (NEGATIVE) Med Orders - Current: Current Medications Acetaminophen (Tylenol) 650 mg PO Q4H PRN PRN Reason: Pain (Mild 1-3)/fever Aspirin (Aspirin) 81 mg PO DAILY [facility] Last Admin: 01/05/20 08:39 Dose: 81 mg Carvedilol (Coreg) 6.25 mg PO BIDMEALS [facility] Last Admin: 01/05/20 08:38 Dose: 6.25 mg Cephalexin (Keflex) 500 mg PO Q6H [facility] Last Admin: 01/05/20 08:39 Dose: 500 mg Enoxaparin Sodium (Lovenox) 30 mg SUBCUT Q24H [facility] Last Admin: 01/04/20 18:09 Dose: 30 mg Finasteride (Proscar) 5 mg PO DAILY [facility] Last Admin: 01/05/20 08:39 Dose: 5 mg Insulin Glargine (Lantus Solostar) 34 units SUBCUT DAILY [facility] Last Admin: 01/05/20 08:39 Dose: 34 units Insulin Human Lispro (Humalog) 0 unit SUBCUT TIDMEALS [facility]; Protocol Last Admin: 01/05/20 08:38 Dose: Not Given Lidocaine HCl (Glydo) 6 ml .XX ASDIRECTED PRN PRN Reason: Other Magnesium Chloride (Mag-64) 64 mg PO BEDTIME [facility] Last Admin: 01/04/20 20:23 Dose: 64 mg Metformin HCl (Glucophage) 500 mg PO BIDMEALS [facility] Last Admin: 01/05/20 08:38 Dose: 500 mg Ondansetron HCl (Zofran) 4 mg IV Q4H PRN PRN Reason: Nausea/Vomiting Quetiapine Fumarate (Seroquel) 12.5 mg PO BEDTIME [facility] Last Admin: 01/04/20 20:23 Dose: 12.5 mg Tamsulosin HCl (Flomax) 0.4 mg PO DAILY [facility] Last Admin: 01/05/20 08:39 Dose: 0.4 mg Thiamine HCl (Vitamin B-1) 100 mg PO DAILY [facility] Last Admin: 01/05/20 08:39 Dose: 100 mg Discontinued Medications Ceftriaxone Sodium (Rocephin) 1 gm IVPUSH Q24H [facility] Last Admin: 01/04/20 09:12 Dose: Not Given Ceftriaxone Sodium 1 gm/ (Sodium Chloride) 50 mls @ 200 mls/hr IV ONETIME ONE Stop: 01/01/20 15:48 Last Admin: 01/01/20 16:01 Dose: 200 mls/hr Sodium Chloride (Normal Saline) 1,000 mls @ 0 mls/hr IV ASDIRECTED MIKE Stop: 01/05/20 15:34 Last Infusion: 01/01/20 16:45 Dose: 999 mls/hr Sodium Chloride (Normal Saline) 1,000 mls @ 999 mls/hr IV .BOLUS ONE Stop: 01/01/20 17:43 Last Admin: 01/01/20 18:50 Dose: Not Given Sodium Chloride (Normal Saline) 1,000 mls @ 999 mls/hr IV .BOLUS ONE Stop: 01/01/20 17:44 Last Admin: 01/01/20 17:45 Dose: 999 mls/hr Sodium Chloride (Sodium Chloride 0.45%) 1,000 mls @ 75 mls/hr IV ASDIRECTED MIKE Last Admin: 01/02/20 08:11 Dose: 75 mls/hr Lidocaine HCl (Glydo) Confirm Administered Dose 6 ml .ROUTE .STK-MED ONE Stop: 01/01/20 15:36 Last Admin: 01/01/20 16:31 Dose: Not Given Lidocaine HCl (Glydo) 0 ml .XX NOW ONE Stop: 01/01/20 15:37 Last Admin: 01/01/20 17:13 Dose: 6 ml Losartan Potassium (Cozaar) 100 mg PO DAILY MIKE - Exam General: Reports: Alert HEENT: Reports: Pupils Equal, Scleral Icterus Lungs: Reports: Clear to Auscultation Cardiovascular: Reports: Regular Rate Neurological: Reports: No New Focal Deficit Psy/Mental Status: Reports: Alert, Depressed
== END 2020-01-05 11:10 | disposition home or self-care (01) | DRG 698 ==
LOC: FB.ED 13:56 → FB.MS 17:50 → UNDOADMIN 17:53 → FB.MS 17:53 → UNDOADMIN 01-02 10:00 → UNDODISIN 01-05 11:10
PROVIDERS: ADMIT Emergency Medicine; ATTEND Family Medicine
DX: A41.9 Sepsis, unspecified organism (principal); T83.511A Infection and inflammatory reaction due to indwelling urethral catheter, initial encounter; A41.51 Sepsis due to Escherichia coli [E. coli]; E11.22 Type 2 diabetes mellitus with diabetic chronic kidney disease; N39.0 Urinary tract infection, site not specified; N18.9 Chronic kidney disease, unspecified; N17.9 Acute kidney failure, unspecified; N42.9 Disorder of prostate, unspecified; R79.89 Other specified abnormal findings of blood chemistry; N13.9 Obstructive and reflux uropathy, unspecified; G30.0 Alzheimer's disease with early onset; F02.80 Dementia in other diseases classified elsewhere, unspecified severity, without behavioral disturbance, psychotic disturbance, mood disturbance, and anxiety; R33.9 Retention of urine, unspecified; H91.90 Unspecified hearing loss, unspecified ear; I73.9 Peripheral vascular disease, unspecified; M06.9 Rheumatoid arthritis, unspecified; E11.9 Type 2 diabetes mellitus without complications; Z79.84 Long term (current) use of oral hypoglycemic drugs; Z79.82 Long term (current) use of aspirin; Z79.4 Long term (current) use of insulin; Z79.899 Other long term (current) drug therapy; I12.9 Hypertensive chronic kidney disease with stage 1 through stage 4 chronic kidney disease, or unspecified chronic kidney disease; Z20.828 Contact with and (suspected) exposure to other viral communicable diseases
CPT/HCPCS: 36415 ×2; 51798; 71045; 80048; 80053; 81001 ×2; 83605; 83735; 84484 ×2; 85025 ×2; 87040 ×2; 87077; 87086; 87088; 87186 ×2; 93005 ×2; 96361; 96365; 99285; A9270 ×7; J0696 ×2; J1815 ×4; J3490; J7030 ×2; J7050; U0002; 51702; 82962; 93010; J1650

== ENCOUNTER 2020-01-06 20:13 | Inpatient (IN) | payer MEDICARE, OTHER ==
[2020-01-06] MEDS ORDERED: Levofloxacin 500 MG Tab PO STA (20:59)
[2020-01-06] MEDS ORDERED: Levofloxacin 250 MG Tab PO ONE (21:00)
[2020-01-06] MEDS ORDERED: Levofloxacin 750 MG Tab PO STA ×2 (21:06→21:13)
--- NOTE | 2020-01-06 21:09 | EDM.PDOC ---
ED HPI GENERAL MEDICAL PROBLEM - General Chief Complaint: Fever Stated Complaint: FEVER, HIGH BLOOD PRESSURE PER NURSE Time Seen by Provider: 01/06/20 20:25 Source of Information: Reports: Family History Limitations: Reports: No Limitations - History of Present Illness INITIAL COMMENTS - FREE TEXT/NARRATIVE: Patient presented to the ED because of fever. He was recently diagnosed with E coli UTI and bacteremia on and discharged with keflex on 01/04/20. Today he developed fever and is somewhat disoriented and confused. He is awaiting [facility] placement in a memory care unit sometime this coming week per [facility]. - Related Data Allergies Allergy/AdvReac Type Severity Reaction Status Date / Time No Known Allergies Allergy Verified 01/01/20 14:22 Home Meds: Home Meds Aspirin 81 mg PO DAILY 01/01/20 [History] Finasteride 5 mg PO DAILY 01/01/20 [History] Insulin Glarg,Human.Rec.Analog [Lantus Solostar] 34 units SUBCUT DAILY 01/01/20 [History] Losartan Potassium 100 mg PO DAILY 01/01/20 [History] Magnesium Chloride [Mag Delay] 64 mg PO BEDTIME 01/01/20 [History] Tamsulosin HCl 0.4 mg PO DAILY 01/01/20 [History] Thiamine [Vitamin B-1] 100 mg PO BEDTIME 01/01/20 [History] carvediloL [Carvedilol] 6.25 mg PO BID 01/01/20 [History] metFORMIN HCl [Metformin HCl] 500 mg PO BID 01/01/20 [History] Acetaminophen [Tylenol] 650 mg PO Q4H PRN 01/04/20 [History] Bisacodyl [Gentle Laxative] 10 mg RECTAL Q72H PRN 01/04/20 [History] Cyanocobalamin (Vitamin B-12) [Vitamin B-12] 1,000 mcg PO DAILY 01/04/20 [ History] Loperamide HCl [Imodium A-D] 2 mg PO ASDIRECTED PRN 01/04/20 [History] Mag Hydrox/Aluminum Hyd/Simeth [Mylanta Maximum Strength Liq] 10 ml PO QID PRN 01/04/20 [History] Magnesium Hydroxide [Milk of Magnesia] 30 ml PO DAILY PRN 01/04/20 [History] Multivitamin 1 tab PO DAILY 01/04/20 [History] Oxybutynin Chloride [Oxybutynin Chloride ER] 10 mg PO DAILY 01/04/20 [History] QUEtiapine [SEROquel] 12.5 mg PO BEDTIME 01/04/20 [History] cephALEXin [Cephalexin] 500 mg PO TID #15 tablet 01/04/20 [Rx] guaiFENesin [Tussin] 10 ml PO Q4H PRN 01/04/20 [History] levoFLOXacin [Levaquin] 500 mg PO DAILY #7 tab 01/06/20 [Rx] Past Medical History HEENT History: Reports: Hard of Hearing Cardiovascular History: Reports: Hypertension, PVD Genitourinary History: Reports: Prostate Disorder, Renal Disease Musculoskeletal History: Reports: RA Psychiatric History: Reports: Dementia Endocrine/Metabolic History: Reports: Diabetes, Type II - Infectious Disease History Infectious Disease History: Reports: Chicken Pox, Measles, Mumps - Past Surgical History Head Surgeries/Procedures: Reports: None Musculoskeletal Surgical History: Reports: Arthroscopic Knee Other Musculoskeletal Surgeries/Procedures:: R knee scope Social & Family History - Family History Family Medical History: Noncontributory - Caffeine Use Caffeine Use: Reports: None ED ROS GENERAL - Review of Systems Review Of Systems: See Below Constitutional: Reports: Fever HEENT: Reports: No Symptoms Respiratory: Reports: No Symptoms Cardiovascular: Reports: No Symptoms Endocrine: Reports: No Symptoms GI/Abdominal: Reports: No Symptoms : Reports: No Symptoms Musculoskeletal: Reports: No Symptoms Skin: Reports: No Symptoms Neurological: Reports: Confusion Psychiatric: Reports: No Symptoms ED EXAM, GENERAL - Physical Exam Exam: See Below Exam Limited By: No Limitations General Appearance: Alert, No Apparent Distress Ears: Normal External Exam, Normal Canal Nose: Normal Inspection, Normal Mucosa Throat/Mouth: Normal Inspection, Normal Lips Head: Atraumatic, Normocephalic Neck: Normal Inspection, Supple, Non-Tender, Full Range of Motion Respiratory/Chest: No Respiratory Distress, Lungs Clear, Normal Breath Sounds Cardiovascular: Normal Peripheral Pulses, Regular Rate, Rhythm, No Edema, No Gallop GI/Abdominal: Normal Bowel Sounds, Soft, Non-Tender, No Organomegaly (Male) Exam: No Hernia, Normal Inspection, Normal Prostate Back Exam: Normal Inspection, Full Range of Motion Extremities: Normal Inspection, Normal Range of Motion Neurological: Unresponsive Course - Vital Signs Text/Narrative:: labs reviewed levaquin 750 mg po x1 pending urine and blood culture result - Orders/Labs/Meds Orders: Active Orders 24 hr Category Date Time Status Chest 1V Frontal [CR] Stat Exams 01/06/20 20:33 Taken CULTURE BLOOD [BC] Urgent Lab 01/06/20 20:24 Received CULTURE BLOOD [BC] Urgent Lab 01/06/20 21:15 Received UA W/MICROSCOPIC [URIN] Stat Lab 01/06/20 20:33 Ordered Blood Culture x2 Reflex Set [OM.PC] Urgent Oth 01/06/20 20:33 Ordered Labs: Laboratory Tests 01/06/20 01/06/20 01/06/20 Range/Units 08:24 08:24 08:24 WBC 14.6 H (4.5-12.0) X10-3/uL RBC 4.69 (4.30-5.75) x10(6)uL Hgb 14.8 (13.5-17.8) g/dL Hct 43.7 (30.0-51.3) % MCV 93.2 (80-96) fL MCH 31.7 (27.7-33.6) pg MCHC 34.0 (32.2-35.4) g/dL RDW 12.4 (11.5-15.5) % Plt Count 196 (125-369) X10(3)uL MPV 7.9 (7.4-10.4) fL Neut % (Auto) 81.6 (46-82) % Lymph % (Auto) 4.3 L (13-37) % [place] % (Auto) 13.1 H (4-12) % Eos % (Auto) 0 L (1.0-5.0) % Baso % (Auto) 1 (0-2) % Neut # (Auto) 12.0 H (1.6-8.3) # Lymph # (Auto) 0.6 (0.6-5.0) # [place] # (Auto) 1.9 H (0.0-1.3) # Eos # (Auto) 0.0 (0.0-0.8) # Baso # (Auto) 0.1 (0.0-0.2) # Sodium 134 L (135-145) mmol/L Potassium 3.5 (3.5-5.3) mmol/L Chloride 99 L D (100-110) mmol/L Carbon Dioxide 24 (21-32) mmol/L BUN 13 (7-18) mg/dL Creatinine 1.4 H (0.70-1.30) mg/dL Est Cr Clr Drug Dosing TNP Estimated GFR (MDRD) 50 L (>60) BUN/Creatinine Ratio 9.3 (9-20) Glucose 258 H D (80-116) mg/dL Lactic Acid 1.8 (0.4-2.0) mmol/L Calcium 8.8 (8.6-10.2) mg/dL Total Bilirubin 0.9 (0.1-1.3) mg/dL AST 46 H (5-25) IU/L ALT 104 H D (12-36) U/L Alkaline Phosphatase 86 (56-112) IU/L Total Protein 7.7 (6.0-8.0) g/dL Albumin 2.7 L (3.2-4.6) g/dL Globulin 5.0 g/dL Albumin/Globulin Ratio 0.5 Meds: Medications Discontinued Medications Generic Name Dose Route Start Last Admin Trade Name Freq PRN Reason Stop Dose Admin Levofloxacin 500 mg 01/06/20 20:59 Levaquin PO 01/06/20 21:00 NOW STA Levofloxacin 250 mg 01/06/20 21:00 Levaquin PO 01/06/20 21:01 ONETIME ONE Levofloxacin 750 mg 01/06/20 21:06 Levaquin PO 01/06/20 21:07 NOW STA Levofloxacin 750 mg 01/06/20 21:13 Levaquin PO 01/06/20 21:14 NOW STA Departure - Departure Time of Disposition: 21:05 Disposition: Admitted As Inpatient 64 Condition: Good Clinical Impression: UTI (urinary tract infection), Bacteremia - Discharge Information Prescriptions: levoFLOXacin [Levaquin] 500 mg PO DAILY #7 tab Instructions: Urinary Tract Infection, Adult, Bacteremia, Adult Referrals: Abdias Rivera MD [Primary Care Provider] - Forms: ED Department Discharge Additional Instructions: please read discharge instructions on UTI and bacteremia Coontinue keflex until gone Levaquin 500 mg once daily for 7 days Tylenol 650 mg every 4-6 hours as needed for pain Follow up blood culture results. Follow up Sepsis Event Note - Focused Exam Date Exam was Performed: 01/06/20 Time Exam was Performed: 22:22 - My Orders Last 24 Hours: My Active Orders 01/06/20 20:24 CULTURE BLOOD [BC] Urgent 01/06/20 20:33 Chest 1V Frontal [CR] Stat UA W/MICROSCOPIC [URIN] Stat Blood Culture x2 Reflex Set [OM.PC] Urgent 01/06/20 21:15 CULTURE BLOOD [BC] Urgent - Assessment/Plan Last 24 Hours: My Active Orders 01/06/20 20:24 CULTURE BLOOD [BC] Urgent 01/06/20 20:33 Chest 1V Frontal [CR] Stat UA W/MICROSCOPIC [URIN] Stat Blood Culture x2 Reflex Set [OM.PC] Urgent 01/06/20 21:15 CULTURE BLOOD [BC] Urgent
[2020-01-06] MEDS ORDERED: Bisacodyl 5 MG Tab PO PRN (22:36)
[2020-01-06] MEDS ORDERED: Docusate Sodium 100 MG Cap PO PRN (22:36)
[2020-01-06] MEDS ORDERED: Enoxaparin 40 MG/0.4 ML Syringe SUBCUT SCH (22:45)
[2020-01-06] MEDS ORDERED: guaiFENesin 100 MG/5 ML Soln 5 ML UD Cup PO PRN (22:48)
[2020-01-06] MEDS ORDERED: Bisacodyl 10 MG Supp RECTAL PRN (22:48)
[2020-01-06] MEDS ORDERED: Magnesium Hydroxide 400 MG/5 ML Susp 30 ML Cup PO PRN (22:48)
[2020-01-06] MEDS ORDERED: Loperamide 2 MG Cap PO PRN (22:48)
[2020-01-06] MEDS ORDERED: Acetaminophen 325 MG Tab PO PRN (22:48)
[2020-01-06] MEDS ORDERED: Levofloxacin/Dextrose 5%-Water 500 MG in Premix Bag 1 BAG IV SCH (23:00)
[2020-01-06] MEDS: Sodium Chloride 0.9% 10 ML Syringe FLUSH PRN (23:50)
[2020-01-07] MEDS: Sodium Chloride 0.9% 10 ML Syringe FLUSH PRN (00:50)
[2020-01-07] MEDS ORDERED: Aluminum Hydroxide/Magnesium Hydroxide Susp 30 ML Cup PO PRN (08:00)
--- NOTE | 2020-01-07 08:51 | PCM.HP.2 ---
H&P History of Present Illness - General Date of Service: 01/07/20 Admit Problem/Dx: Admission Diagnosis/Problem Admission Diagnosis/Problem UTI (urinary tract infection) due to urinary indwelling catheter Source of Information: Old Records, Provider, RN History Limitations: Reports: Altered Mental Status - History of Present Illness Initial Comments - Free Text/Narative: Maurice is [id number] male was being readmitted for confusion. He was here up to 2 days ago for bacteremia/ UTI. Was discharge on cephalexin; his blood cultures having grown Escherichia coli that was sensitive to cephalosporins. However, at the [facility],he apparently had a fever of 102F.He has none here; but he was more confused needing more care than they can provide. He is here for admission , treatment and possibly discharge to long-term facility. - Related Data Allergies/Adverse Reactions: Allergies Allergy/AdvReac Type Severity Reaction Status Date / Time No Known Allergies Allergy Verified 01/01/20 14:22 Home Medications: Home Meds Aspirin 81 mg PO DAILY 01/01/20 [History] Finasteride 5 mg PO DAILY 01/01/20 [History] Insulin Glarg,Human.Rec.Analog [Lantus Solostar] 34 units SUBCUT DAILY 01/01/20 [History] Losartan Potassium 100 mg PO DAILY 01/01/20 [History] Magnesium Chloride [Mag Delay] 64 mg PO BEDTIME 01/01/20 [History] Tamsulosin HCl 0.4 mg PO DAILY 01/01/20 [History] Thiamine [Vitamin B-1] 100 mg PO BEDTIME 01/01/20 [History] carvediloL [Carvedilol] 6.25 mg PO BID 01/01/20 [History] metFORMIN HCl [Metformin HCl] 500 mg PO BID 01/01/20 [History] Acetaminophen [Tylenol] 650 mg PO Q4H PRN 01/04/20 [History] Bisacodyl [Gentle Laxative] 10 mg RECTAL Q72H PRN 01/04/20 [History] Cyanocobalamin (Vitamin B-12) [Vitamin B-12] 1,000 mcg PO DAILY 01/04/20 [ History] Loperamide HCl [Imodium A-D] 2 mg PO ASDIRECTED PRN 01/04/20 [History] Mag Hydrox/Aluminum Hyd/Simeth [Mylanta Maximum Strength Liq] 10 ml PO QID PRN 01/04/20 [History] Magnesium Hydroxide [Milk of Magnesia] 30 ml PO DAILY PRN 01/04/20 [History] Multivitamin 1 tab PO DAILY 01/04/20 [History] Oxybutynin Chloride [Oxybutynin Chloride ER] 10 mg PO DAILY 01/04/20 [History] QUEtiapine [SEROquel] 12.5 mg PO BEDTIME 01/04/20 [History] cephALEXin [Cephalexin] 500 mg PO TID #15 tablet 01/04/20 [Rx] guaiFENesin [Tussin] 10 ml PO Q4H PRN 01/04/20 [History] levoFLOXacin [Levaquin] 500 mg PO DAILY #7 tab 01/06/20 [Rx] Past Medical History HEENT History: Reports: Hard of Hearing Cardiovascular History: Reports: Hypertension, PVD Genitourinary History: Reports: Prostate Disorder, Renal Disease Musculoskeletal History: Reports: RA Psychiatric History: Reports: Dementia Other Psychiatric History: Vascular dementia Endocrine/Metabolic History: Reports: Diabetes, Type II Insulin Pump Model and Solvent Plant Treater: no - Infectious Disease History Infectious Disease History: Reports: Chicken Pox, Measles, Mumps - Past Surgical History Head Surgeries/Procedures: Reports: None Musculoskeletal Surgical History: Reports: Arthroscopic Knee Other Musculoskeletal Surgeries/Procedures:: R knee scope Social & Family History - Family History Family Medical History: Noncontributory - Tobacco Use Smoking Status *Q: Never Smoker - Caffeine Use Caffeine Use: Reports: None - Recreational Drug Use Recreational Drug Use: No H&P Review of Systems - Review of Systems: Review Of Systems: Comprehensive ROS is negative, except as noted in HPI. Exam - Exam Exam: See Below - Vital Signs Vital Signs: Last Vital Signs Temp 97.4 F 01/07/20 05:30 Pulse 71 01/07/20 05:30 Resp 18 01/07/20 05:30 BP 148/74 H 01/07/20 05:30 Pulse Ox 96 01/07/20 05:30 Weight: 80.739 kg - Exam General: Alert. No: Oriented HEENT: PERRLA Neck: Supple Lungs: Clear to Auscultation Cardiovascular: Regular Rate GI/Abdominal Exam: Normal Bowel Sounds (Male) Exam: No Hernia Rectal (Males) Exam: Deferred Back Exam: Normal Inspection Extremities: Normal Inspection Skin: Warm Neurological: Cranial Nerves Intact Neuro Extensive - Mental Status: Inattentive, Slow Response to Commands. No: Oriented x3 Neuro Extensive - Motor, Sensory, Reflexes: Normal Reflexes Psychiatric: Alert, Depressed - Patient Data Lab Results Last 24 hrs: Laboratory Results - last 24 hr 01/06/20 01/06/20 01/06/20 Range/Units 08:24 08:24 08:24 WBC 14.6 H (4.5-12.0) X10-3/uL RBC 4.69 (4.30-5.75) x10(6)uL Hgb 14.8 (13.5-17.8) g/dL Hct 43.7 (30.0-51.3) % MCV 93.2 (80-96) fL MCH 31.7 (27.7-33.6) pg MCHC 34.0 (32.2-35.4) g/dL RDW 12.4 (11.5-15.5) % Plt Count 196 (125-369) X10(3)uL MPV 7.9 (7.4-10.4) fL Neut % (Auto) 81.6 (46-82) % Lymph % (Auto) 4.3 L (13-37) % Cooper % (Auto) 13.1 H (4-12) % Eos % (Auto) 0 L (1.0-5.0) % Baso % (Auto) 1 (0-2) % Neut # (Auto) 12.0 H (1.6-8.3) # Lymph # (Auto) 0.6 (0.6-5.0) # Cooper # (Auto) 1.9 H (0.0-1.3) # Eos # (Auto) 0.0 (0.0-0.8) # Baso # (Auto) 0.1 (0.0-0.2) # Sodium 134 L (135-145) mmol/L Potassium 3.5 (3.5-5.3) mmol/L Chloride 99 L D (100-110) mmol/L Carbon Dioxide 24 (21-32) mmol/L BUN 13 (7-18) mg/dL Creatinine 1.4 H (0.70-1.30) mg/dL Est Cr Clr Drug Dosing TNP Estimated GFR (MDRD) 50 L (>60) BUN/Creatinine Ratio 9.3 (9-20) Glucose 258 H D (80-116) mg/dL Lactic Acid 1.8 (0.4-2.0) mmol/L Calcium 8.8 (8.6-10.2) mg/dL Total Bilirubin 0.9 (0.1-1.3) mg/dL AST 46 H (5-25) IU/L ALT 104 H D (12-36) U/L Alkaline Phosphatase 86 (56-112) IU/L Total Protein 7.7 (6.0-8.0) g/dL Albumin 2.7 L (3.2-4.6) g/dL Globulin 5.0 g/dL Albumin/Globulin Ratio 0.5 Urine Color (YELLOW) Urine Appearance (CLEAR) Urine pH (5.0-6.5) Ur Specific [place] (1.010-1.025) Urine Protein (NEGATIVE) mg/dL Urine Glucose (UA) (NORMAL) mg/dL Urine Ketones (NEGATIVE) mg/dL Urine Occult Blood (NEGATIVE) Urine Nitrite (NEGATIVE) Urine Bilirubin (NEGATIVE) Urine Urobilinogen (NEGATIVE) mg/dL Ur Leukocyte Esterase (NEGATIVE) Urine RBC (0-5) Urine WBC (0-5) Ur Squamous Epith Cells (NS,R,O) Urine Bacteria (NS) 01/07/20 01/07/20 01/07/20 Range/Units 00:10 06:10 06:10 WBC 10.9 (4.5-12.0) X10-3/uL RBC 4.21 L (4.30-5.75) x10(6)uL Hgb 13.7 (13.5-17.8) g/dL Hct 39.5 (30.0-51.3) % MCV 93.8 (80-96) fL MCH 32.4 (27.7-33.6) pg MCHC 34.6 (32.2-35.4) g/dL RDW 12.5 (11.5-15.5) % Plt Count 181 (125-369) X10(3)uL MPV 8.0 (7.4-10.4) fL Neut % (Auto) 77.6 (46-82) % Lymph % (Auto) 11.2 L (13-37) % Cooper % (Auto) 10.4 (4-12) % Eos % (Auto) 1 (1.0-5.0) % Baso % (Auto) 0 (0-2) % Neut # (Auto) 8.5 H (1.6-8.3) # Lymph # (Auto) 1.2 (0.6-5.0) # Cooper # (Auto) 1.1 (0.0-1.3) # Eos # (Auto) 0.1 (0.0-0.8) # Baso # (Auto) 0.0 (0.0-0.2) # Sodium 138 (135-145) mmol/L Potassium 3.2 L (3.5-5.3) mmol/L Chloride 103 (100-110) mmol/L Carbon Dioxide 25 (21-32) mmol/L BUN 14 (7-18) mg/dL Creatinine 1.1 (0.70-1.30) mg/dL Est Cr Clr Drug Dosing 59.59 Estimated GFR (MDRD) > 60 (>60) BUN/Creatinine Ratio 12.7 (9-20) Glucose 152 H D (80-116) mg/dL Lactic Acid (0.4-2.0) mmol/L Calcium 8.3 L (8.6-10.2) mg/dL Total Bilirubin (0.1-1.3) mg/dL AST (5-25) IU/L ALT (12-36) U/L Alkaline Phosphatase (56-112) IU/L Total Protein (6.0-8.0) g/dL Albumin (3.2-4.6) g/dL Globulin g/dL Albumin/Globulin Ratio Urine Color Red (YELLOW) Urine Appearance Cloudy (CLEAR) Urine pH 5.0 (5.0-6.5) Ur Specific [place] 1.020 (1.010-1.025) Urine Protein 100 H (NEGATIVE) mg/dL Urine Glucose (UA) 250 H (NORMAL) mg/dL Urine Ketones 15 H (NEGATIVE) mg/dL Urine Occult Blood Large H (NEGATIVE) Urine Nitrite Positive H (NEGATIVE) Urine Bilirubin Small H (NEGATIVE) Urine Urobilinogen 1 H (NEGATIVE) mg/dL Ur Leukocyte Esterase Large H (NEGATIVE) Urine RBC Packed H (0-5) Urine WBC >100 H (0-5) Ur Squamous Epith Cells Few H (NS,R,O) Urine Bacteria Moderate H (NS) Result Diagrams: 01/07/20 06:10 01/07/20 06:10 Sepsis Event Note - Evaluation Sepsis Screening Result: No Definite Risk - Focused Exam Vital Signs: Vital Signs Temp Pulse Resp BP Pulse Ox Pulse Ox 01/07/20 05:30 97.4 F 71 18 148/74 H 96 01/06/20 23:10 99.3 F 64 20 130/79 94 L 94 L 01/06/20 22:17 98.7 F 71 16 124/63 97 Date Exam was Performed: 01/07/20 Time Exam was Performed: 08:47 - Problem List (1) Dementia SNOMED Code(s): 40238000 ICD Code: F03.90 - UNSPECIFIED DEMENTIA WITHOUT BEHAVIORAL DISTURBANCE Status: Acute Current Visit: No Qualifiers: Dementia type: Alzheimer's disease (2) BPH (benign prostatic hyperplasia) SNOMED Code(s): 669451342 ICD Code: N40.0 - BENIGN PROSTATIC HYPERPLASIA WITHOUT LOWER URINRY TRACT SYMP Status: Acute Current Visit: Yes Qualifiers: Lower urinary tract symptom presence: symptoms present (3) Bacteremia SNOMED Code(s): 9555267 ICD Code: R78.81 - BACTEREMIA Status: Acute Current Visit: No (4) Indwelling catheter replaced SNOMED Code(s): 845420398 ICD Code: Z46.6 - ENCOUNTER FOR FITTING AND ADJUSTMENT OF URINARY DEVICE Status: Acute Current Visit: No (5) Leukocytosis SNOMED Code(s): 643061908, 071683027 ICD Code: D72.829 - ELEVATED WHITE BLOOD CELL COUNT, UNSPECIFIED Status: Acute Current Visit: No Qualifiers: Leukocytosis type: lymphocytosis Qualified Code(s): D72.820 - Lymphocytosis (symptomatic) (6) UTI (urinary tract infection) SNOMED Code(s): 80696377 ICD Code: N39.0 - URINARY TRACT INFECTION, SITE NOT SPECIFIED Status: Acute Current Visit: No Qualifiers: Urinary tract infection type: catheter-associated UTI Problem List Initiated/Reviewed/Updated: Yes Orders Last 24hrs: Active Orders 24 hr Category Date Time Status Patient Status [ADT] Routine ADT 01/06/20 22:36 Active Intake and Output [RC] 06,14,22 Care 01/06/20 22:38 Active Oxygen Therapy [RC] PRN Care 01/06/20 22:36 Active Pulse Oximetry [RC] PRN Care 01/06/20 22:38 Active Up With Assistance [RC] ASDIRECTED Care 01/06/20 22:36 Active Urinary Catheter Assessment [RC] QSHIFT Care 01/06/20 22:36 Active VTE/DVT Education [RC] Per Unit Routine Care 01/06/20 22:36 Active Vital Signs [RC] 08,12,16,20,00,04 Care 01/06/20 22:36 Active Consult to Case Management/Deburrer Machine [CONS] Cons 01/07/20 01:23 Active Routine Chest 1V Frontal [CR] Stat Exams 01/06/20 20:33 Taken CULTURE BLOOD [BC] Urgent Lab 01/06/20 20:24 Received CULTURE BLOOD [BC] Urgent Lab 01/06/20 21:15 Received Acetaminophen [Tylenol] Med 01/06/20 22:48 Active 650 mg PO Q4H PRN Alum Hydroxide/Mag Hydroxide [Mag-Al Susp] Med 01/07/20 08:00 Active 10 ml PO QID PRN Aspirin Med 01/07/20 09:00 Active 81 mg PO DAILY Cyanocobalamin (Vitamin B12) [Vitamin B12] Med 01/07/20 09:00 Active 1,000 mcg PO DAILY Docusate Sodium [Colace] Med 01/06/20 22:36 Active 100 mg PO BID PRN Enoxaparin [Lovenox] Med 01/06/20 22:45 Active 40 mg SUBCUT Q24H Finasteride [Proscar] Med 01/07/20 09:00 Active 5 mg PO DAILY Insulin Glarg,Human.Rec.Analog [LantUS Solostar] Med 01/07/20 09:00 Active 34 units SUBCUT DAILY Levofloxacin/Dextrose 5%-Water [Levaquin in D5W 500 MG/ Med 01/08/20 08:00 Active 100 ML] 500 mg Premix Bag 1 bag IV Q24H Loperamide [Imodium] Med 01/06/20 22:48 Active 2 mg PO ASDIRECTED PRN Losartan [Cozaar] Med 01/07/20 09:00 Active 100 mg PO DAILY Magnesium Chloride [Mag-64] Med 01/07/20 21:00 Active 64 mg PO BEDTIME Magnesium Hydroxide [Milk of Magnesia] Med 01/06/20 22:48 Active 30 ml PO DAILY PRN Multivitamins [Tab-A-Daniel] Med 01/07/20 09:00 Active 1 tab PO DAILY Oxybutynin [Oxybutynin ER] Med 01/07/20 09:00 Active 10 mg PO DAILY QUEtiapine [SEROqueL] Med 01/07/20 21:00 Active 12.5 mg PO BEDTIME Sodium Chloride 0.9% [Saline Flush] Med 01/06/20 23:10 Active 10 ml FLUSH ASDIRECTED PRN Tamsulosin [Flomax] Med 01/07/20 09:00 Active 0.4 mg PO DAILY Thiamine [Vitamin B-1] Med 01/07/20 21:00 Active 100 mg PO BEDTIME bisacodyL [Dulcolax] Med 01/06/20 22:48 Active 10 mg RECTAL Q72H PRN bisacodyL [Dulcolax] Med 01/06/20 22:36 Active 5 mg PO DAILY PRN carvediloL [Coreg] Med 01/07/20 09:00 Active 6.25 mg PO BID cephALEXin [Keflex] Med 01/07/20 09:00 Active 500 mg PO TID guaiFENesin [Robitussin] Med 01/06/20 22:48 Active 200 mg PO Q4H PRN metFORMIN [Glucophage] Med 01/07/20 09:00 Active 500 mg PO BID Blood Culture x2 Reflex Set [OM.PC] Urgent Oth 01/06/20 20:33 Ordered Resuscitation Status Routine Resus Stat 01/06/20 22:36 Ordered Medication Orders Acetaminophen (Tylenol) 650 mg PO Q4H PRN PRN Reason: Fever/PAIN Last Admin: 01/07/20 00:59 Dose: 650 mg Al Hydroxide/Mg Hydroxide (Mag-Al Susp) 10 ml PO QID PRN PRN Reason: INDIGESTION Aspirin (Aspirin) 81 mg PO DAILY MIKE Bisacodyl (Dulcolax) 5 mg PO DAILY PRN PRN Reason: Constipation Bisacodyl (Dulcolax) 10 mg RECTAL Q72H PRN PRN Reason: Constipation Carvedilol (Coreg) 6.25 mg PO BID MIKE Cephalexin (Keflex) 500 mg PO TID MIKE Cyanocobalamin (Vitamin B12) 1,000 mcg PO DAILY [facility] Docusate Sodium (Colace) 100 mg PO BID PRN PRN Reason: Constipation Enoxaparin Sodium (Lovenox) 40 mg SUBCUT Q24H [facility] Last Admin: 01/07/20 00:59 Dose: 40 mg Finasteride (Proscar) 5 mg PO DAILY [facility] Guaifenesin (Robitussin) 200 mg PO Q4H PRN PRN Reason: Cough Levofloxacin/Dextrose 500 mg/ (Premix) 100 mls @ 100 mls/hr IV Q24H [facility] Insulin Glargine (Lantus Solostar) 34 units SUBCUT DAILY [facility] Loperamide HCl (Imodium) 2 mg PO ASDIRECTED PRN PRN Reason: Diarrhea Last Admin: 01/07/20 02:53 Dose: 2 mg Losartan Potassium (Cozaar) 100 mg PO DAILY [facility] Magnesium Chloride (Mag-64) 64 mg PO BEDTIME [facility] Magnesium Hydroxide (Milk Of Magnesia) 30 ml PO DAILY PRN PRN Reason: Constipation Metformin HCl (Glucophage) 500 mg PO BID [facility] Multivitamins/Minerals/Vitamin C (Tab-A-Daniel) 1 tab PO DAILY [facility] Oxybutynin Chloride (Oxybutynin Er) 10 mg PO DAILY [facility] Quetiapine Fumarate (Seroquel) 12.5 mg PO BEDTIME [facility] Sodium Chloride (Saline Flush) 10 ml FLUSH ASDIRECTED PRN PRN Reason: Keep Vein Open Last Admin: 01/07/20 00:50 Dose: 10 ml Admin: 01/06/20 23:50 Dose: 10 ml Tamsulosin HCl (Flomax) 0.4 mg PO DAILY [facility] Thiamine HCl (Vitamin B-1) 100 mg PO BEDTIME [facility] Assessment/Plan Comment:: Continue antibiotics,awaiting Disposition. I recommend 10 days course of oral antibiotics.
[2020-01-07] MEDS ORDERED: Finasteride 5 MG Tab PO SCH (09:00)
[2020-01-07] MEDS ORDERED: metFORMIN 500 MG Tab PO SCH (09:00)
[2020-01-07] MEDS ORDERED: Losartan 100 MG Tab PO SCH (09:00)
[2020-01-07] MEDS ORDERED: Cyanocobalamin (Vitamin B12) 1,000 MCG Tab PO SCH (09:00)
[2020-01-07] MEDS ORDERED: Carvedilol 6.25 MG Tab PO SCH (09:00)
[2020-01-07] MEDS ORDERED: Insulin Glargine,Human Rec. Analog 100 Units/ML 3 ML Pen SUBCUT SCH (09:00)
[2020-01-07] MEDS ORDERED: Oxybutynin 5 MG Tab.ER PO SCH (09:00)
[2020-01-07] MEDS ORDERED: Multivitamin Tab PO SCH (09:00)
[2020-01-07] MEDS ORDERED: Tamsulosin 0.4 MG Cap.ER PO SCH (09:00)
[2020-01-07] MEDS ORDERED: Aspirin 81 MG Tab.Chew PO SCH (09:00)
[2020-01-07] MEDS: Cephalexin 500 MG Cap PO SCH ×2 (09:07→13:00)
--- NOTE | 2020-01-07 09:39 | CR ---
INDICATION: Fever. CHEST ONE VIEW: AP portable upright view of the chest 01/06/2020 was compared with 01/01/2020 and reveals what appears to be some minimal infiltrate at the left costophrenic angle appearing slightly more prominent than on the previous study. Somewhat heavy markings at the left lung base were also again present. Findings could be on the basis of a minimal patchy pneumonia. The heart does not appear grossly enlarged; although, the left ventricular contour was slightly prominent. The aorta is calcified in the arch area. No definite evidence of CHF is seen. No gross consolidating pneumonia or significant size effusion was seen. IMPRESSION: Question possibility of minimal patchy pneumonia at the left lung base. MTDD
[2020-01-07] MEDS ORDERED: Tuberculin, PPD 5 Units/0.1 ML 1 ML MDV IDERM ONE (11:49)
--- NOTE | 2020-01-07 14:27 | DISCH ---
DISCHARGE DATE: 01/07/2020 REASON FOR ADMISSION: 1. Alteration of mental status. 2. Fever. DISCHARGE DIAGNOSES: 1. Alzheimer's dementia with behavior disturbance. 2. Urinary tract infection with sepsis. 3. Type 2 diabetes. 4. Hypertension. 5. Chronic kidney disease. BRIEF HISTORY: This is a 69-year-old male who came in from the [facility] yesterday because of fever and increased confusion. He was recently discharged with a diagnosis of bacteremia from the UTI. He was evaluated here and placed on antibiotics. He has no further needs and will be sent to a jail at [place] today. I have recommended cephalexin 500 mg three times a day for 10 days. He will need physical and occupational therapy as well as nursing 24-hour care. Follow up with physician in 1 to 2 weeks. I spent more than 35 minutes in the discharge of the patient. /[id number] DARWIN/COSME
[2020-01-07] MEDS ORDERED: Thiamine 100 MG Tab PO SCH (21:00)
[2020-01-07] MEDS ORDERED: QUEtiapine 25 MG Tab PO SCH (21:00)
[2020-01-07] MEDS ORDERED: Magnesium Chloride 64 MG Tab.ER PO SCH (21:00)
[2020-01-08] MEDS ORDERED: Levofloxacin/Dextrose 5%-Water 500 MG in Premix Bag 1 BAG IV SCH (08:00)
== END 2020-01-07 13:15 | DRG 698 ==
LOC: FB.ED 20:13 → FB.MS 22:36
PROVIDERS: ADMIT Emergency Medicine; ATTEND Family Medicine
DX: T83.511A Infection and inflammatory reaction due to indwelling urethral catheter, initial encounter (principal); R78.81 Bacteremia; H91.90 Unspecified hearing loss, unspecified ear; I73.9 Peripheral vascular disease, unspecified; I10 Essential (primary) hypertension; M06.9 Rheumatoid arthritis, unspecified; N28.9 Disorder of kidney and ureter, unspecified; N42.9 Disorder of prostate, unspecified; F03.90 Unspecified dementia, unspecified severity, without behavioral disturbance, psychotic disturbance, mood disturbance, and anxiety; E11.9 Type 2 diabetes mellitus without complications; A41.9 Sepsis, unspecified organism; F02.81 Dementia in other diseases classified elsewhere, unspecified severity, with behavioral disturbance; N39.0 Urinary tract infection, site not specified; N40.0 Benign prostatic hyperplasia without lower urinary tract symptoms; G30.9 Alzheimer's disease, unspecified; I12.9 Hypertensive chronic kidney disease with stage 1 through stage 4 chronic kidney disease, or unspecified chronic kidney disease; E11.22 Type 2 diabetes mellitus with diabetic chronic kidney disease; N18.9 Chronic kidney disease, unspecified; Z79.82 Long term (current) use of aspirin; Z79.4 Long term (current) use of insulin; Z79.899 Other long term (current) drug therapy
CPT/HCPCS: 36415; 51798; 71045; 80048; 80053; 81001; 83605; 85025; 86580; 87040; 99285-25; A9270-GY; J1650; J1815-GY; J1956